=== PATIENT | female | born 1960 | race Caucasian/White ===

== ENCOUNTER → 2016-10-09 | Outpatient (CLI) | payer OTHER ==
--- NOTE | 2016-10-09 14:37 | RAD ---
Exam performed: Right breast ultrasound. History: Follow-up abnormal nodule at 3:00 position. Date of service: 10/09/16. Comparison made to a right breast diagnostic mammogram and ultrasound from 01/23/16, right breast ultrasound from 10/24 and diagnostic right mammogram and ultrasound from 02/02/2015. Discussion: Sonographic evaluation of the right breast is performed in the area of previously seen concern. Normal fibroglandular densities are seen. No solid or cystic mass lesions are seen. Impression: No definite sonographic abnormality seen in the right breast. Patient may return for annual screening mammogram when schedule in January. BI-RADS 1
== END | disposition home or self-care (01) ==
LOC: US 11:17
PROVIDERS: ATTEND Family Medicine
DX: R92.8 Other abnormal and inconclusive findings on diagnostic imaging of breast (principal); N63 Unspecified lump in breast
CPT/HCPCS: 76641

== ENCOUNTER 2021-01-16 11:33 | Emergency (ER) | payer OTHER ==
[~2021-01-16] VITALS: Ht 170.2 cm; Wt 87.8 kg
[2021-01-16] MEDS ORDERED: IV NORMAL SALINE 1000ML BAG 1,000 ML IV ONE ×2 (12:00→14:15)
[2021-01-16] MEDS ORDERED: fentaNYL PF VIAL 100 MCG/2 ML VIAL IVP ONE (12:00)
[2021-01-16] MEDS ORDERED: ONDANSETRON PF 4 MG/2 ML VIAL. IVP ONE ×2 (12:00→14:00)
[2021-01-16 12:06] LABS: BASO # 0.1 x10^3/uL (0.0-0.2); BASO % 1 % (0-3); EOS % 1 % (0-3); HEMATOCRIT 40.1 % (36.0-47.0); HEMOGLOBIN 13.5 g/dL (12.0-15.5); LYMPH # 2.1 x10^3/uL (1.0-4.8); LYMPH % 25 % (24-48); MEAN CORPUSCULAR HEMOGLOBIN 32 pg (25-35); MEAN CORPUSCULAR HGB CONC 34 g/dL (31-37); MEAN CORPUSCULAR VOLUME 94 fL (79-100); MONO # 0.4 x10^3/uL (0.0-1.1); MONO % 5 % (0-9); NEUT # 5.7 x10^3/uL (1.8-7.7); NEUT % 69 % (31-73); PLATELET COUNT 340 x10^3/uL (140-400); RED BLOOD COUNT 4.25 x10^6/uL (3.50-5.40); RED CELL DISTRIBUTION WIDTH 14.2 % (11.5-14.5); WHITE BLOOD COUNT 8.3 x10^3/uL (4.0-11.0)
[2021-01-16 12:28] LABS: ALBUMIN 4.4 g/dL (3.4-5.0); ALBUMIN/GLOBULIN RATIO 1.2 (1.0-1.7); CALCIUM 9.3 mg/dL (8.5-10.1); CREATININE 0.9 mg/dL (0.6-1.0); GFR 63.2; MAGNESIUM 1.9 mg/dL (1.8-2.4); TOTAL BILIRUBIN 0.6 mg/dL (0.2-1.0); TOTAL PROTEIN 8.1 g/dL (6.4-8.2)
--- NOTE | 2021-01-16 12:42 | ED.ADGEN ---
Past Medical History Past Medical History: Hypertension, Unknown, Other Additional Past Medical Histor: ETOH abuse, poor historian. Past Surgical History: Appendectomy, Other Additional Past Surgical Histo: Back surgery, 2 knee surgeries. Smoking Status: Current Every Day Smoker Alcohol Use: Occasionally General Adult EDM: Chief Complaint: NAUSEA/VOMITING/DIARRHEA HPI: HPI: Patient is a 61 year old female coming in for multiple episodes of vomiting and diarrhea since this morning. Emesis is nonbloody or bilious. No blood or tarry stools. Patient states she has been drinking water today. Patient states her pain is in the epigastric area that does not radiate and has not moved. Patient traveled from [place], denies any undercooked food or recent antibiotic use. No known sick contacts. Denies any fever comes occasional cough. Has history of alcohol use. History of appendectomy. Review of Systems: Review of Systems: All other systems within normal limits except for as noted in the HPI Current Medications: Current Medications Medications (Trade) Dose Ordered Sig/Chalo Start Time Stop Time Status Last Admin Dose Admin Fentanyl Citrate (Fentanyl 2ml Vial) 75 mcg 1X ONCE 01/16/21 12:00 01/16/21 12:02 DC 01/16/21 12:06 75 MCG Info (CONTRAST GIVEN -- Rx MONITORING) 1 each PRN DAILY PRN 01/16/21 12:45 01/18/21 12:44 Iohexol (Omnipaque 300 Mg/ml) 75 ml 1X ONCE 01/16/21 12:45 01/16/21 12:46 DC 01/16/21 12:43 75 ML Metoclopramide HCl (Reglan Vial) 10 mg 1X ONCE 01/16/21 13:30 01/16/21 13:31 DC 01/16/21 13:27 10 MG Multi-Ingredient Mouthwash/Gargle (Gi Cocktail) 20 ml 1X ONCE 01/16/21 13:45 01/16/21 13:46 DC 01/16/21 14:26 20 ML Ondansetron HCl (Zofran) 4 mg 1X ONCE 01/16/21 14:00 01/16/21 14:01 DC 01/16/21 14:08 4 MG Potassium Chloride (Klor-Con) 40 meq 1X ONCE 01/16/21 14:15 01/16/21 14:16 DC 01/16/21 15:09 40 MEQ Sodium Chloride 1,000 ml @ 1,000 mls/hr 1X ONCE 01/16/21 14:15 01/16/21 15:14 DC 01/16/21 14:26 1,000 MLS/HR Allergies: Allergies: Allergies Coded Allergies Type Severity Reaction Last Updated Verified No Known Drug Allergies 01/16/21 No Physical Exam: PE: Constitutional: Well developed, well nourished, no acute distress, non-toxic appearance. [] HENT: Normocephalic, atraumatic, bilateral external ears normal, nose normal. [] Eyes: PERRLA, conjunctiva normal, no discharge. [] Neck: No rigidity, supple, no stridor. [] Cardiovascular: Regular rate and rhythm, brisk cap refill [] Lungs & Thorax: Non labored symmetric respirations, no tachypnea or respiratory distress [] Abdomen: Soft, nondistended, epigastric tenderness, no rebound. Skin: Warm, diaphoretic, no erythema, no rash. [] Back: Unremarkable Extremities: No deformities, range of motion grossly intact, no lower extremity edema [] Neurologic: Alert and oriented X 3, no focal deficits noted. [] Psychologic: Affect normal, judgement normal, mood normal. [] Current Patient Data: Labs: Laboratory Tests Test 01/16/21 11:44 01/16/21 13:25 White Blood Count 8.3 x10^3/uL (4.0-11.0) Red Blood Count 4.25 x10^6/uL (3.50-5.40) Hemoglobin 13.5 g/dL (12.0-15.5) Hematocrit 40.1 % (36.0-47.0) Mean Corpuscular Volume 94 fL (79-100) Mean Corpuscular Hemoglobin 32 pg (25-35) Mean Corpuscular Hemoglobin Concent 34 g/dL (31-37) Red Cell Distribution Width 14.2 % (11.5-14.5) Platelet Count 340 x10^3/uL (140-400) Neutrophils (%) (Auto) 69 % (31-73) Lymphocytes (%) (Auto) 25 % (24-48) Monocytes (%) (Auto) 5 % (0-9) Eosinophils (%) (Auto) 1 % (0-3) Basophils (%) (Auto) 1 % (0-3) Neutrophils # (Auto) 5.7 x10^3/uL (1.8-7.7) Lymphocytes # (Auto) 2.1 x10^3/uL (1.0-4.8) Monocytes # (Auto) 0.4 x10^3/uL (0.0-1.1) Eosinophils # (Auto) 0.0 x10^3/uL (0.0-0.7) Basophils # (Auto) 0.1 x10^3/uL (0.0-0.2) Sodium Level 142 mmol/L (136-145) Potassium Level 3.0 mmol/L (3.5-5.1) L Chloride Level 104 mmol/L (98-107) Carbon Dioxide Level 22 mmol/L (21-32) Anion Gap 16 (6-14) H Blood Urea Nitrogen 6 mg/dL (7-20) L Creatinine 0.9 mg/dL (0.6-1.0) Estimated GFR (Cockcroft-Gault) 63.2 BUN/Creatinine Ratio 7 (6-20) Glucose Level 161 mg/dL (70-99) H Lactic Acid Level 2.9 mmol/L (0.4-2.0) H Calcium Level 9.3 mg/dL (8.5-10.1) Phosphorus Level 2.0 mg/dL (2.6-4.7) L Magnesium Level 1.9 mg/dL (1.8-2.4) Total Bilirubin 0.6 mg/dL (0.2-1.0) Aspartate Amino Transferase (AST) 17 U/L (15-37) Alanine Aminotransferase (ALT) 17 U/L (14-59) Alkaline Phosphatase 90 U/L (46-116) Troponin I Quantitative < 0.017 ng/mL (0.000-0.055) ZF-Voa-Q-Type Natriuretic Peptide 244 pg/mL (0-124) H Total Protein 8.1 g/dL (6.4-8.2) Albumin 4.4 g/dL (3.4-5.0) Albumin/Globulin Ratio 1.2 (1.0-1.7) Lipase 133 U/L (73-393) Ethyl Alcohol Level < 10 mg/dL (0-10) Urine Collection Type Unknown Urine Color Yellow Urine Clarity Clear Urine pH 7.0 (<5.0-8.0) Urine Specific Arabi 1.025 (1.000-1.030) Urine Protein Negative mg/dL (NEG-TRACE) Urine Glucose (UA) Negative mg/dL (NEG) Urine Ketones (Stick) >=80 mg/dL (NEG) Urine Blood Negative (NEG) Urine Nitrite Negative (NEG) Urine Bilirubin Negative (NEG) Urine Urobilinogen Dipstick 0.2 mg/dL (0.2 mg/dL) Urine Leukocyte Esterase Negative (NEG) Urine RBC 0 /HPF (0-2) Urine WBC 0 /HPF (0-4) Urine Squamous Epithelial Cells Mod /LPF Urine Bacteria 0 /HPF (0-FEW) Urine Opiates Screen Neg (NEG) Urine Methadone Screen Neg (NEG) Urine Barbiturates Neg (NEG) Urine Phencyclidine Screen Neg (NEG) Urine Amphetamine/Methamphetamine Neg (NEG) Urine Benzodiazepines Screen Neg (NEG) Urine Cocaine Screen Neg (NEG) Urine Cannabinoids Screen Pos (NEG) Urine Ethyl Alcohol Neg (NEG) Laboratory Tests 01/16/21 11:44 Laboratory Tests 01/16/21 11:44 Vital Signs: Vital Signs Date Time Temp Pulse Resp B/P (MAP) Pulse Ox O2 Delivery O2 Flow Rate FiO2 01/16/21 12:06 Room Air 01/16/21 11:38 97.9 61 20 199/97 (131) 100 97.9 EKG: EKG: Sinus rhythm, heart rate 50 beats minute, left axis deviation, no ST elevation depression, no ectopy. Normal intervals. [] Heart Score: C/O Chest Pain: No Risk Factors: Risk Factors: DM, Current or recent (<one month) smoker, HTN, HLP, family history of CAD, obesity. Risk Scores: Score 0 - 3: 2.5% MACE over next 6 weeks - Discharge Home Score 4 - 6: 20.3% MACE over next 6 weeks - Admit for Clinical Observation Score 7 - 10: 72.7% MACE over next 6 weeks - Early Invasive Strategies Radiology/Procedures: Radiology/Procedures: [facility] [address] [place] [address] IMAGING REPORT Signed PATIENT: JERED WILKS ACCOUNT: [id number] : 1960 LOCATION: ER AGE: 61 SEX: F EXAM STATUS: REG ER ORD. PHYSICIAN: BARNEY PAN MD REASON: abd pain, vomiting PROCEDURE: CT ABD PELV W/ IV CONTRST ONLY EXAM: Abdomen and pelvis CT with intravenous contrast. HISTORY: Pain and vomiting. TECHNIQUE: Computed tomographic images of the abdomen and pelvis were obtained following the administration of intravenous contrast. Multiplanar reformatting was performed. *One or more of the following individualized dose reduction techniques were utilized for this examination: 1. Automated exposure control. 2. Adjustment of the mA and/or kV according to patient size. 3. Use of iterative reconstruction technique. COMPARISON: None. FINDINGS: Evaluation of the lower thorax demonstrates no infiltrate or pleural effusion. There is a small hiatal hernia. There is a small cyst within the left hepatic lobe. There is cholelithiasis. The pancreas, spleen and adrenal glands are unremarkable. There is right greater than left renal cortical lobulation likely due to scarring. There is no hydronephrosis. There is no appendicitis. There is no bowel obstruction. There is distal colonic diverticulosis. There is segmental wall thickening involving the sigmoid colon likely due to relative underdistention and a sequela of prior inflammation. There is no convincing surrounding inflammatory stranding to suspect acute colitis or diverticulitis. The bladder is unremarkable. The uterus and adnexal regions are unremarkable. There is a normal caliber aorta. There is no lymphadenopathy. There is no suspicious osseous lesion. There is degenerative change involving the spine, primarily at the lower lumbar levels. There are mild chronic compression fractures at T12 and L3. There is severe left hip osteoarthritis. There is associated flattening of the superior left femoral head. IMPRESSION: 1. Distal colonic diverticulosis. There is segmental wall thickening involving the sigmoid colon likely due to relative under distention of the sequela of prior inflammation. There is no convincing acute colitis or diverticulitis. 2. Cholelithiasis. 3. Bilateral renal cortical scarring. 4. Small hiatal hernia. 5. Small hepatic cyst. Electronically signed by: Delmis Mitchell MD (01/16/2021 12:58 PM) [id number] DICTATED and SIGNED BY: DELMIS MITCHELL MD DATE: 01/16/21 [id number] 0 [] Course & Med Decision Making: Course & Med Decision Making Pertinent Labs and Imaging studies reviewed. (See chart for details) Patient feeling much better and tolerating p.o. [] Linsey Disclaimer: Linsey Disclaimer: This electronic medical record was generated, in whole or in part, using a voice recognition dictation system. Departure Departure Impression: Primary Impression: Nausea vomiting and diarrhea Disposition: HOME / SELF CARE / HOMELESS Condition: IMPROVED Referrals: NO PCP (PCP) Patient Instructions: Diet for Diarrhea, Adult, Hypokalemia Additional Instructions: Take nausea and stomach pain medications as needed. Can take [id number] Imodium for diarrhea if diet is not working. Increase potassium intake in your regular diet. Scripts Ondansetron (ONDANSETRON ODT) 4 Mg Tab.rapdis 1 TAB PO PRN Q6-8HRS PRN for NAUSEA for 5 Days, #16 TAB Prov: BARNEY PAN MD 01/16/21 Sucralfate (SUCRALFATE) 1 Gm Tablet 1 TAB PO TID PRN for ABDOMINAL PAIN for 10 Days, #30 TAB 11 Refills Prov: BARNEY PAN MD 01/16/21 BARNEY PAN MD Jan 16, 2021 12:42
[2021-01-16] MEDS ORDERED: IOHEXOL 300 MG/ML 100ML VIAL. IV ONE (12:45)
[2021-01-16] MEDS ORDERED: CONTRAST GIVEN. MC PRN (12:45)
--- NOTE | 2021-01-16 13:00 | RAD ---
EXAM: Abdomen and pelvis CT with intravenous contrast. HISTORY: Pain and vomiting. TECHNIQUE: Computed tomographic images of the abdomen and pelvis were obtained following the administ ration of intravenous contrast. Multiplanar reformatting was performed. *One or more of the following individualized dose reduction techniques were utilized for this examina tion: 1. Automated exposure control. 2. Adjustment of the mA and/or kV according to patient size. 3. Use of iterative reconstruction technique. COMPARISON: None. FINDINGS: Evaluation of the lower thorax demonstrates no infiltrate or pleural effusion. There is a s mall hiatal hernia. There is a small cyst within the left hepatic lobe. There is cholelithiasis. The pancreas, spleen and adrenal glands are unremarkable. There is right greater than left renal cortical lobulation likely due to scarring. There is no hydron ephrosis. There is no appendicitis. There is no bowel obstruction. There is distal colonic diverticul osis. There is segmental wall thickening involving the sigmoid colon likely due to relative underdist ention and a sequela of prior inflammation. There is no convincing surrounding inflammatory stranding to suspect acute colitis or diverticulitis. The bladder is unremarkable. The uterus and adnexal jhon ons are unremarkable. There is a normal caliber aorta. There is no lymphadenopathy. There is no suspicious osseous lesion. There is degenerative change involving the spine, primarily at the lower lumbar levels. There are mil d chronic compression fractures at T12 and L3. There is severe left hip osteoarthritis. There is asso ciated flattening of the superior left femoral head. IMPRESSION: 1. Distal colonic diverticulosis. There is segmental wall thickening involving the sigmoid colon like ly due to relative under distention of the sequela of prior inflammation. There is no convincing acut e colitis or diverticulitis. 2. Cholelithiasis. 3. Bilateral renal cortical scarring. 4. Small hiatal hernia. 5. Small hepatic cyst. Electronically signed by: Delmis Mitchell MD (01/16/2021 12:58 PM) [id number]
[2021-01-16] MEDS ORDERED: METOCLOPRAMIDE HCL 10 MG/2 ML VIAL. IVP ONE (13:30)
[2021-01-16 13:44] LABS: BILIRUBIN,URINE NEGATIVE (NEG); CLARITY,URINE CLEAR; COLOR,URINE YELLOW; NITRITE,URINE NEGATIVE (NEG); PROTEIN,URINE NEGATIVE (NEG-TRACE); UROBILINOGEN,URINE 0.2 mg/dL (0.2 mg/dL)
[2021-01-16] MEDS ORDERED: LIDO:MAALOX 1:1 20 ML SINGLE DOSE. SWSW ONE (13:45)
[2021-01-16 13:51] LABS: AMPHETAMINE/METHAMPHETAMINE NEG (NEG); BARBITURATES NEG (NEG); BENZODIAZEPINES NEG (NEG); CANNABINOIDS POS (NEG); COCAINE NEG (NEG); METHADONE NEG (NEG); OPIATES NEG (NEG); PHENCYCLIDINE NEG (NEG)
[2021-01-16 14:12] LABS: BACTERIA,URINE 0 /HPF (0-FEW); RBC,URINE 0 /HPF (0-2); WBC,URINE 0 /HPF (0-4)
[2021-01-16] MEDS ORDERED: POTASSIUM CHLORIDE 20 MEQ TABLET.ER. PO ONE (14:15)
[2021-01-16 15:20] VITALS: BP 173/87
[2021-01-16] MEDS ORDERED: ONDA4TAB12 PO (15:25)
[2021-01-16] MEDS ORDERED: SUCR1TAB PO (15:25)
--- NOTE | 2021-01-16 18:09 | EKG ---
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
== END 2021-01-16 15:35 | disposition home or self-care (01) ==
LOC: ER 11:33
DX: R11.2 Nausea with vomiting, unspecified (principal); R19.7 Diarrhea, unspecified; R10.13 Epigastric pain; I10 Essential (primary) hypertension; F17.200 Nicotine dependence, unspecified, uncomplicated; Z90.49 Acquired absence of other specified parts of digestive tract
CPT/HCPCS: 36415; 74177; 80053; 80307; 81001; 83605; 83690; 83735; 83880; 84100; 84484; 85025; 93005; 96361; 96374; 96375; 96376; 99285; G0480; J2405; J2765; J3010; J7030; Q9967

== ENCOUNTER → 2021-05-01 | Outpatient (CLI) | payer OTHER ==
[~2021-05-01] MED LIST: ATROVENT HFA12.9 GM IH; FERR-36 PO; GABA600T7 PO; LEVO112T49 PO; NAPH15DR11 OU; NAPR-514 PO; NORT25CA PO; ONDA4TAB12 PO; SUCR1TAB PO; TRAM50TA PO
[2021-05-01 08:55] LABS: BASO # 0.1 x10^3/uL (0.0-0.2); BASO % 2 % (0-3); EOS # 0.3 x10^3/uL (0.0-0.7); EOS % 4 % (0-3); HEMATOCRIT 38.2 % (36.0-47.0); HEMOGLOBIN 12.9 g/dL (12.0-15.5); LYMPH # 2.1 x10^3/uL (1.0-4.8); LYMPH % 32 % (24-48); MEAN CORPUSCULAR HEMOGLOBIN 32 pg (25-35); MEAN CORPUSCULAR HGB CONC 34 g/dL (31-37); MEAN CORPUSCULAR VOLUME 94 fL (79-100); MONO # 0.5 x10^3/uL (0.0-1.1); MONO % 7 % (0-9); NEUT # 3.7 x10^3/uL (1.8-7.7); NEUT % 55 % (31-73); PLATELET COUNT 260 x10^3/uL (140-400); RED BLOOD COUNT 4.08 x10^6/uL (3.50-5.40); WHITE BLOOD COUNT 6.8 x10^3/uL (4.0-11.0)
[2021-05-01 09:06] LABS: PROTHROMBIN TIME PATIENT 12.2 SEC (11.7-14.0)
[2021-05-01 09:08] LABS: ALBUMIN 3.9 g/dL (3.4-5.0); CALCIUM 8.9 mg/dL (8.5-10.1); CREATININE 0.9 mg/dL (0.6-1.0); GFR 63.2; POTASSIUM 4.4 mmol/L (3.5-5.1)
--- NOTE | 2021-05-01 11:29 | EKG ---
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
[2021-05-02 01:08] LABS: HEMOGLOBIN A1C 5.4 % (4.8-5.6)
--- NOTE | 2021-05-02 14:00 | RAD ---
AP and Lateral Views of the Chest 05/01/2021 11:59 AM Indication: Reason: joint prehab class-hx hypertension- preop evaluation for left hip Comparison: Chest radiograph February 21, 2008 Findings: There is no focal consolidation or infiltrate identified. The cardiomediastinal silhouette is within normal limits. There is no evidence of pneumothorax or pleural effusion. No acute osseous a bnormalities are identified. Impression: No evidence of acute cardiopulmonary process. Electronically signed by: Nick Bauman MD (05/02/2021 8:41 AM) [id number]
== END ==
LOC: SURGPAT 11:44
PROVIDERS: ATTEND Orthopaedic Surgery
DX: Z01.818 Encounter for other preprocedural examination (principal); R94.31 Abnormal electrocardiogram [ECG] [EKG]; M16.12 Unilateral primary osteoarthritis, left hip
CPT/HCPCS: 36415; 71046; 80048; 82040; 82306; 83036; 85025; 85610; 85651; 85730; 87641; 93005

== ENCOUNTER → 2021-06-09 | Outpatient (CLI) | payer OTHER | LOC: SURGPAT 13:18 | PROVIDERS: ATTEND Orthopaedic Surgery | DX: Z01.812 Encounter for preprocedural laboratory examination (principal); M16.12 Unilateral primary osteoarthritis, left hip | CPT/HCPCS: 36415; 80307; 87641 ==

== ENCOUNTER 2021-07-24 17:52 | Inpatient (IN) | payer OTHER ==
[~2021-07-24] VITALS: Ht 167.6 cm; Wt 94.2 kg
[2021-07-24] MEDS ORDERED: IV NORMAL SALINE 1000ML BAG 1,000 ML IV ONE (18:00)
--- NOTE | 2021-07-24 18:11 | PHYS DOC ---
Past Medical History Past Medical History: Hypertension, Unknown, Other Additional Past Medical Histor: ETOH abuse, poor historian. Past Surgical History: Appendectomy, Other Additional Past Surgical Histo: Back surgery, 2 knee surgeries. Smoking Status: Current Every Day Smoker Alcohol Use: Occasionally General Adult HPI: HPI: Patient is a 61-year-old female who presents to the emergency department for seizure-like activity. Per EMS, patient's seizures were witnessed by her sistershe reports 5 seizures today, there reports that patient was able to communicate with sister immediately following seizures and there was no postictal period. EMS reports that patient was hyperventilating when they arri julián. Patient received 5 mg of Versed by EMS. Patient is also reporting nausea, vomiting and diarrhea that started today. Patient does not have a history of seizures. Patient denies shortness of breath, chest pain, fevers, abdominal pain, sick exposures. Patient is alert and oriented x4. Review of Systems: Review of Systems: Constitutional: See HPI Respiratory: See HPI Cardiovascular: See HPI GI: See HPI Neurologic: See HPI Heart Score: C/O Chest Pain: No Risk Factors: Risk Factors: DM, Current or recent (<one month) smoker, HTN, HLP, family history of CAD, obesity. Risk Scores: Score 0 - 3: 2.5% MACE over next 6 weeks - Discharge Home Score 4 - 6: 20.3% MACE over next 6 weeks - Admit for Clinical Observation Score 7 - 10: 72.7% MACE over next 6 weeks - Early Invasive Strategies Current Medications: Current Medications Medications (Trade) Dose Ordered Sig/Chalo Start Time Stop Time Status Last Admin Dose Admin Sodium Chloride 1,000 ml @ 1,000 mls/hr 1X ONCE 07/24/21 18:00 07/24/21 18:59 Allergies: Allergies: Allergies Coded Allergies Type Severity Reaction Last Updated Verified No Known Drug Allergies 01/16/21 No Physical Exam: PE: Constitutional: Well developed, well nourished, no acute distress, non-toxic appearance. [] HENT: Normocephalic, atraumatic, bilateral external ears normal, oropharynx moist, no oral exudates, nose normal. [] Eyes: PERRL, 4 mm pupils bilaterally, EOMI, conjunctiva normal, no discharge. [] Neck: Normal range of motion, no stridor Cardiovascular:Heart rate regular rhythm, no murmur [] Lungs & Thorax: Bilateral breath sounds clear to auscultation [] Abdomen: Bowel sounds normal, soft, no tenderness, no masses, no pulsatile masses. [] Skin: Warm, dry, no erythema, no rash. [] Back: Normal range of motion Extremities: No tenderness, no cyanosis, no clubbing, ROM intact, no edema. [] Neurologic: Alert and oriented X 3, normal motor function, normal sensory function, no focal deficits noted, patient moving all 4 extremities equally, no pronator drift, no speech changes, equal hooker up strength bilaterally. [] Psychologic: Affect normal, judgement normal, mood normal. [] Current Patient Data: Labs: Laboratory Tests Test 07/24/21 18:15 White Blood Count 10.5 x10^3/uL Red Blood Count 4.28 x10^6/uL Hemoglobin 13.6 g/dL Hematocrit 40.9 % Mean Corpuscular Volume 95 fL Mean Corpuscular Hemoglobin 32 pg Mean Corpuscular Hemoglobin Concent 33 g/dL Red Cell Distribution Width 14.6 % Platelet Count 321 x10^3/uL Neutrophils (%) (Auto) 88 % Lymphocytes (%) (Auto) 9 % Monocytes (%) (Auto) 3 % Eosinophils (%) (Auto) 0 % Basophils (%) (Auto) 1 % Neutrophils # (Auto) 9.2 x10^3/uL Lymphocytes # (Auto) 0.9 x10^3/uL Monocytes # (Auto) 0.3 x10^3/uL Eosinophils # (Auto) 0.0 x10^3/uL Basophils # (Auto) 0.1 x10^3/uL Sodium Level 140 mmol/L Potassium Level 3.6 mmol/L Chloride Level 102 mmol/L Carbon Dioxide Level 19 mmol/L Anion Gap 19 Blood Urea Nitrogen 12 mg/dL Creatinine 0.9 mg/dL Estimated GFR (Cockcroft-Gault) 63.2 BUN/Creatinine Ratio 13 Glucose Level 149 mg/dL Lactic Acid Level 5.6 mmol/L Calcium Level 8.4 mg/dL Total Bilirubin 0.3 mg/dL Aspartate Amino Transf (AST/SGOT) 18 U/L Alanine Aminotransferase (ALT/SGPT) 23 U/L Alkaline Phosphatase 89 U/L Creatine Kinase 65 U/L Total Protein 7.4 g/dL Albumin 3.6 g/dL Albumin/Globulin Ratio 0.9 Ethyl Alcohol Level < 10 mg/dL Current Medications Medications (Trade) Dose Ordered Sig/Chalo Route PRN Reason Start Time Stop Time Status Last Admin Dose Admin Sodium Chloride 1,000 ml @ 1,000 mls/hr 1X ONCE IV 07/24/21 18:00 07/24/21 18:59 DC 07/24/21 18:56 Ondansetron HCl (Zofran) 4 mg 1X ONCE IVP 07/24/21 19:15 07/24/21 19:16 DC 07/24/21 19:30 EKG: EKG: EKG performed by ER staff at 1802 shows sinus rhythm with a rate of 73, QTC of 416, no STEMI read by Dr. Kruse at 1905, repeat EKG ordered. Repeat EKG performed at 1928 by ER staff shows sinus rhythm with a rate of 70, pac, left axis deviation, no STEMI Radiology/Procedures: Radiology/Procedures: []REASON: seizure like activity PROCEDURE: CT HEAD WO CONTRAST EXAM: CT Head without IV contrast CLINICAL HISTORY: Reason: seizure like activity / Spl. Instructions: / History: COMPARISON: None. TECHNIQUE: Routine CT of the head without contrast. PQRS compliance statement - One or more of the following individualized dose reduction techniques were utilized for this study: 1. Automated exposure control 2. Adjustment of the mA and/or kV according to patient size 3. Use of iterative reconstruction technique FINDINGS: There is no evidence of hemorrhage, mass or extra-axial fluid collection. Nicholson-white differentiation is maintained with no evidence of edema. There is no mass effect or shift of the intracranial structures. The ventricles, basilar cisterns and cortical sulci are normal in size and configuration for the patients stated age. The cerebellum and brainstem are unremarkable. The calvarium demonstrates no evidence of fracture or focal lesion. There is normal aeration of the visualized paranasal sinuses and mastoid air cells. The visualized portions of the orbits are normal. IMPRESSION: No evidence for acute intracranial process. Electronically signed by: Kiel Garduno MD (07/24/2021 6:35 PM) [facility] DICTATED and SIGNED BY: KIEL GARDUNO MD DATE: 07/24/21 [id number] 0 Course & Med Decision Making: Course & Med Decision Making Pertinent Labs and Imaging studies reviewed. (See chart for details) [] Patient presents to the emergency department for seizure-like activity x5 today. Seizures were witnessed by patient's sister. Sister told EMS that patient was able to communicate immediately after seizure-like activity. EMS witnessed a seizure-like activity and states that patient was having pseudo seizures as she was hyperventilating but alert and oriented following with no postictal period. Patient does not have a history of seizures. Upon ER arrival, seizure precautions initiated, Work-up in the ER consisted of blood work, EKG, CT imaging of head. CT head negative for acute findings. Patient was noted to have an anion gap of 19 and lactic acid of 5.6. Patient given IV fluids in the ER. Awaiting the results of patient's troponin and patient to have repeat lactic acid after fluids. Due to patient's age and history, I think it would be best for her to be admitted for her first time seizures given that she has had 5 today. I discussed these findings with Dr. Redmond who agreed to admit the patient under his services for seizures. I discussed patient's findings with her and her sister as well as treatment plan and they are agreeable at this time. ER bridge orders placed.[id number]. Care transferred. Linsey Disclaimer: Linsey Disclaimer: This electronic medical record was generated, in whole or in part, using a voice recognition dictation system. Departure Departure Impression: Primary Impression: Seizure Disposition: ADMITTED INPATIENT Admitting Physician: JUAN J Condition: STABLE Referrals: DOMINIC RAY (PCP) CARLINE SAMUELS SALES HOST Jul 24, 2021 18:11
[2021-07-24 18:24] LABS: BASO # 0.1 x10^3/uL (0.0-0.2); BASO % 1 % (0-3); EOS % 0 % (0-3); HEMATOCRIT 40.9 % (36.0-47.0); HEMOGLOBIN 13.6 g/dL (12.0-15.5); LYMPH # 0.9 x10^3/uL (1.0-4.8); LYMPH % 9 % (24-48); MEAN CORPUSCULAR HEMOGLOBIN 32 pg (25-35); MEAN CORPUSCULAR HGB CONC 33 g/dL (31-37); MEAN CORPUSCULAR VOLUME 95 fL (79-100); MONO # 0.3 x10^3/uL (0.0-1.1); MONO % 3 % (0-9); NEUT # 9.2 x10^3/uL (1.8-7.7); NEUT % 88 % (31-73); PLATELET COUNT 321 x10^3/uL (140-400); RED BLOOD COUNT 4.28 x10^6/uL (3.50-5.40); RED CELL DISTRIBUTION WIDTH 14.6 % (11.5-14.5); WHITE BLOOD COUNT 10.5 x10^3/uL (4.0-11.0)
--- NOTE | 2021-07-24 18:37 | RAD ---
EXAM: CT Head without IV contrast CLINICAL HISTORY: Reason: seizure like activity / Spl. Instructions: / History: COMPARISON: None. TECHNIQUE: Routine CT of the head without contrast. PQRS compliance statement - One or more of the following individualized dose reduction techniques wer e utilized for this study: 1. Automated exposure control 2. Adjustment of the mA and/or kV according to patient size 3. Use of iterative reconstruction technique FINDINGS: There is no evidence of hemorrhage, mass or extra-axial fluid collection. Nicholson-white differentiation is maintained with no evidence of edema. There is no mass effect or shift of the intracranial structures. The ventricles, basilar cisterns and cortical sulci are normal in size and configuration for the eduarda ents stated age. The cerebellum and brainstem are unremarkable. The calvarium demonstrates no evidence of fracture or focal lesion. There is normal aeration of the visualized paranasal sinuses and mastoid air cells. The visualized portions of the orbits are normal. IMPRESSION: No evidence for acute intracranial process. Electronically signed by: Kiel Davis MD (07/24/2021 6:35 PM) LV
[2021-07-24 18:38] LABS: CALCIUM 8.4 mg/dL (8.5-10.1); CREATININE 0.9 mg/dL (0.6-1.0); GFR 63.2; POTASSIUM 3.6 mmol/L (3.5-5.1)
[2021-07-24 18:52] LABS: ALBUMIN 3.6 g/dL (3.4-5.0); ALBUMIN/GLOBULIN RATIO 0.9 (1.0-1.7); TOTAL BILIRUBIN 0.3 mg/dL (0.2-1.0); TOTAL PROTEIN 7.4 g/dL (6.4-8.2)
[2021-07-24] MEDS ORDERED: ONDANSETRON PF 4 MG/2 ML VIAL. IVP ONE (19:15)
[2021-07-24] MEDS ORDERED: ONDANSETRON PF 4 MG/2 ML VIAL. IVP PRN (21:15)
[2021-07-24 21:30] LABS: CREATININE 0.7 mg/dL (0.6-1.0); GFR 84.5; POTASSIUM 3.2 mmol/L (3.5-5.1)
--- NOTE | 2021-07-24 21:59 | PDOC1 ---
History and Physical Date of Admission Date of Admission DATE: 07/24/21 TIME: 21:56 Source Source: Chart review History of Present Illness History of Present Illness Ms. Edward is a 61-year-old female admit from emergency department for seizure- like activity. Per EMS her family reported 5 seizures today, there reports that patient was able to communicate with sister immediately following seizures and there was no postictal period. EMS reports that patient was hyperventilating when they arrived. Patient received 5 mg of Versed by EMS. Patient is also reporting nausea, vomiting and diarrhea that started today. Patient does not have a history of seizures. Patient denies shortness of breath, chest pain, fevers, abdominal pain, sick exposures. Patient is alert and oriented x4. Past Medical History Cardiovascular: No pertinent hx Psych: Anxiety, Other (neuropathic pain) Past Surgical History Past Surgical History: No pertinent history Family History Family History: No Significant Social History Smoke: No ALCOHOL: none Drugs: None Current Problem List Problem List Problems Medical Problems: (1) Seizure Status: Acute Current Medications Current Medications Current Medications Sodium Chloride 1,000 ml @ 1,000 mls/hr 1X ONCE IV Last administered on 07/24/21at 18:56; Start 07/24/21 at 18:00; Stop 07/24/21 at 18:59; Status DC Ondansetron HCl (Zofran) 4 mg 1X ONCE IVP Last administered on 07/24/21at 19:30; Start 07/24/21 at 19:15; Stop 07/24/21 at 19:16; Status DC Ondansetron HCl (Zofran) 4 mg PRN Q8HRS PRN IVP NAUSEA/VOMITING; Start at 21:15; Stop 07/25/21 at 21:14 Active Scripts Active Ondansetron Odt (Ondansetron) 4 Mg Tab.rapdis 1 Tab PO PRN Q6-8HRS PRN 5 Days Sucralfate 1 Gm Tablet 1 Tab PO TID PRN 10 Days Reported Eye Allergy Relief Drops (Naphazoline Hcl/Pheniramine) 15 Ml Drops 1 Drop OU PRN DAILY PRN Levothyroxine Sodium 112 Mcg Tablet 112 Mcg PO DAILYAC Naproxen 500 Mg Tablet 500 Mg PO BID Nortriptyline Hcl 25 Mg Capsule 25 Mg PO PRN TID PRN Tramadol Hcl 50 Mg Tablet 50 Mg PO Q6HRS PRN Gabapentin 600 Mg Tablet 600 Mg PO TID Iron (Ferrous Sulfate) 325 Mg Tablet 65 Mg PO DAILY Atrovent Hfa (Ipratropium [place]) 12.9 Gm Hfa.aer.ad 2 Puff IH DAILY Allergies Allergies: Coded Allergies: No Known Drug Allergies (Unverified , 07/24/21) ROS General: YES: Chills, Fatigue, Malaise PSYCHOLOGICAL ROS: No: Anxiety, Behavioral Disorder, Concentration difficultie, Decreased libido, Depression, Disorientation, Hallucinations, Hostility, Irritablity, Memory difficulties, Mood Swings, Obsessive thoughts, Physical abuse, Sexual abuse, Sleep disturbances, Suicidal ideation, Other Eyes: No Blurry vision, No Decreased vision, No Double vision, No Dry eyes, No Excessive tearing, No Eye Pain, No Itchy Eyes, No Loss of vision, No Photophobia, No Scotomata, No Uses contacts, No Uses glasses, No Other HEENT: No: Heacaches, Visual Changes, Hearing change, Nasal congestion, Nasal discharge, Oral lesions, Sinus pain, Sore Throat, Epistaxis, Sneezing, Snoring, Tinnitus, Vertigo, Vocal changes, Other Respiratory: No: Cough, Hemoptysis, Orthopnea, Pleuritic Pain, Shortness of breath, SOB with excertion, Sputum Changes, Stridor, Tachypnea, Wheezing, Other Gastrointestinal: Yes Nausea, Yes Abdominal Pain, Yes Diarrhea Genitourinary: No Dysuria, No Frequency, No Incontinence, No Hematuria, No Retention, No Discharge, No Urgency, No Pain, No Flank Pain, No Other, No , No , No , No , No , No , No Musculoskeletal: No Gait Disturbance, No Joint Pain, No Joint Stiffness, No Joint Swelling, No Muscle Pain, No Muscular Weakness, No Pain In:, No Swelling In:, No Other Neurological: No Behavorial Changes, No Bowel/Bladder ControlChng, No Confusion, No Dizziness, No Gait Disturbance, No Headaches, No Impaired Coord/balance, No Memory Loss, No Numbness/Tingling, No Seizures, No Speech Problems, No Tremors, No Visual Changes, No Weakness, No Other Skin: Yes Dry Skin; No Eczema, No Hair Changes, No Lumps, No Mole Changes, No Mottling, No Nail Changes, No Pruritus, No Rash, No Skin Lesion Changes, No Other, No Acne Physical Exam General: Alert, Cooperative, No acute distress HEENT: PERRLA Lungs: Clear to auscultation Heart: RRR Abdomen: Normal bowel sounds, Soft Extremities: No cyanosis, Normal pulses Skin: No significant lesion Neuro: Normal gait, Sensation intact Psych/Mental Status: Mental status NL, Mood NL Vitals Vitals Vital Signs Date Time Temp Pulse Resp B/P (MAP) Pulse Ox O2 Delivery O2 Flow Rate FiO2 07/24/21 18:07 98.5 94 18 134/70 (91) 96 Room Air 98.5 Labs Labs Laboratory Tests Test 07/24/21 18:15 07/24/21 21:08 White Blood Count 10.5 x10^3/uL (4.0-11.0) Red Blood Count 4.28 x10^6/uL (3.50-5.40) Hemoglobin 13.6 g/dL (12.0-15.5) Hematocrit 40.9 % (36.0-47.0) Mean Corpuscular Volume 95 fL (79-100) Mean Corpuscular Hemoglobin 32 pg (25-35) Mean Corpuscular Hemoglobin Concent 33 g/dL (31-37) Red Cell Distribution Width 14.6 % (11.5-14.5) Platelet Count 321 x10^3/uL (140-400) Neutrophils (%) (Auto) 88 % (31-73) Lymphocytes (%) (Auto) 9 % (24-48) Monocytes (%) (Auto) 3 % (0-9) Eosinophils (%) (Auto) 0 % (0-3) Basophils (%) (Auto) 1 % (0-3) Neutrophils # (Auto) 9.2 x10^3/uL (1.8-7.7) Lymphocytes # (Auto) 0.9 x10^3/uL (1.0-4.8) Monocytes # (Auto) 0.3 x10^3/uL (0.0-1.1) Eosinophils # (Auto) 0.0 x10^3/uL (0.0-0.7) Basophils # (Auto) 0.1 x10^3/uL (0.0-0.2) Sodium Level 140 mmol/L (136-145) 139 mmol/L (136-145) Potassium Level 3.6 mmol/L (3.5-5.1) 3.2 mmol/L (3.5-5.1) Chloride Level 102 mmol/L (98-107) 103 mmol/L (98-107) Carbon Dioxide Level 19 mmol/L (21-32) 24 mmol/L (21-32) Anion Gap 19 (6-14) 12 (6-14) Blood Urea Nitrogen 12 mg/dL (7-20) 10 mg/dL (7-20) Creatinine 0.9 mg/dL (0.6-1.0) 0.7 mg/dL (0.6-1.0) Estimated GFR (Cockcroft-Gault) 63.2 84.5 BUN/Creatinine Ratio 13 (6-20) Glucose Level 149 mg/dL (70-99) 122 mg/dL (70-99) Lactic Acid Level 5.6 mmol/L (0.4-2.0) 1.5 mmol/L (0.4-2.0) Calcium Level 8.4 mg/dL (8.5-10.1) 8.0 mg/dL (8.5-10.1) Total Bilirubin 0.3 mg/dL (0.2-1.0) Aspartate Amino Transf (AST/SGOT) 18 U/L (15-37) Alanine Aminotransferase (ALT/SGPT) 23 U/L (14-59) Alkaline Phosphatase 89 U/L (46-116) Creatine Kinase 65 U/L (26-192) Total Protein 7.4 g/dL (6.4-8.2) Albumin 3.6 g/dL (3.4-5.0) Albumin/Globulin Ratio 0.9 (1.0-1.7) Ethyl Alcohol Level < 10 mg/dL (0-10) Troponin I High Sensitivity 28 ng/L (4-50) Laboratory Tests Test 07/24/21 18:15 07/24/21 21:08 White Blood Count 10.5 x10^3/uL (4.0-11.0) Red Blood Count 4.28 x10^6/uL (3.50-5.40) Hemoglobin 13.6 g/dL (12.0-15.5) Hematocrit 40.9 % (36.0-47.0) Mean Corpuscular Volume 95 fL (79-100) Mean Corpuscular Hemoglobin 32 pg (25-35) Mean Corpuscular Hemoglobin Concent 33 g/dL (31-37) Red Cell Distribution Width 14.6 % (11.5-14.5) Platelet Count 321 x10^3/uL (140-400) Neutrophils (%) (Auto) 88 % (31-73) Lymphocytes (%) (Auto) 9 % (24-48) Monocytes (%) (Auto) 3 % (0-9) Eosinophils (%) (Auto) 0 % (0-3) Basophils (%) (Auto) 1 % (0-3) Neutrophils # (Auto) 9.2 x10^3/uL (1.8-7.7) Lymphocytes # (Auto) 0.9 x10^3/uL (1.0-4.8) Monocytes # (Auto) 0.3 x10^3/uL (0.0-1.1) Eosinophils # (Auto) 0.0 x10^3/uL (0.0-0.7) Basophils # (Auto) 0.1 x10^3/uL (0.0-0.2) Sodium Level 140 mmol/L (136-145) 139 mmol/L (136-145) Potassium Level 3.6 mmol/L (3.5-5.1) 3.2 mmol/L (3.5-5.1) Chloride Level 102 mmol/L (98-107) 103 mmol/L (98-107) Carbon Dioxide Level 19 mmol/L (21-32) 24 mmol/L (21-32) Anion Gap 19 (6-14) 12 (6-14) Blood Urea Nitrogen 12 mg/dL (7-20) 10 mg/dL (7-20) Creatinine 0.9 mg/dL (0.6-1.0) 0.7 mg/dL (0.6-1.0) Estimated GFR (Cockcroft-Gault) 63.2 84.5 BUN/Creatinine Ratio 13 (6-20) Glucose Level 149 mg/dL (70-99) 122 mg/dL (70-99) Lactic Acid Level 5.6 mmol/L (0.4-2.0) 1.5 mmol/L (0.4-2.0) Calcium Level 8.4 mg/dL (8.5-10.1) 8.0 mg/dL (8.5-10.1) Total Bilirubin 0.3 mg/dL (0.2-1.0) Aspartate Amino Transf (AST/SGOT) 18 U/L (15-37) Alanine Aminotransferase (ALT/SGPT) 23 U/L (14-59) Alkaline Phosphatase 89 U/L (46-116) Creatine Kinase 65 U/L (26-192) Total Protein 7.4 g/dL (6.4-8.2) Albumin 3.6 g/dL (3.4-5.0) Albumin/Globulin Ratio 0.9 (1.0-1.7) Ethyl Alcohol Level < 10 mg/dL (0-10) Troponin I High Sensitivity 28 ng/L (4-50) VTE Prophylaxis Ordered VTE Prophylaxis Devices: No VTE Pharmacological Prophylaxi: Yes Assessment/Plan Assessment/Plan seizure disorder repeated seizure, consult neuro depression, anxiety, neuropathic pain obese, BMI 31 diarrhea, seems improved dehydration, hypokalemia, replace, and iv fluid Justifications for Admission Other Justification ROULA BECKER MD Jul 24, 2021 21:59
[2021-07-24] MEDS ORDERED: SUCRALFATE 1 GM TABLET. PO PRN (22:00)
[2021-07-24] MEDS ORDERED: POTASSIUM CHLORIDE 20 MEQ TABLET.ER. PO ONE (22:15)
[2021-07-24 23:00] VITALS: BP 139/84
[2021-07-24] MEDS: NORTRIPTYLINE 25 MG CAPSULE PO SCH (23:48)
[2021-07-24] MEDS: GABAPENTIN 300 MG CAPSULE. PO SCH (23:48)
[2021-07-25 03:00] VITALS: BP 131/76
--- NOTE | 2021-07-25 03:02 | EKG ---
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
[2021-07-25 07:00] VITALS: BP 128/83
--- NOTE | 2021-07-25 07:19 | NUR ---
Consult to Dr Nobles's answering service, Cheo, to let the physician know.
[2021-07-25 08:47] LABS: BASO % 0 % (0-3); EOS # 0.1 x10^3/uL (0.0-0.7); EOS % 1 % (0-3); HEMATOCRIT 40.4 % (36.0-47.0); HEMOGLOBIN 13.5 g/dL (12.0-15.5); LYMPH # 3.1 x10^3/uL (1.0-4.8); LYMPH % 29 % (24-48); MEAN CORPUSCULAR HEMOGLOBIN 32 pg (25-35); MEAN CORPUSCULAR HGB CONC 34 g/dL (31-37); MEAN CORPUSCULAR VOLUME 94 fL (79-100); MONO # 0.8 x10^3/uL (0.0-1.1); MONO % 8 % (0-9); NEUT # 6.7 x10^3/uL (1.8-7.7); NEUT % 63 % (31-73); PLATELET COUNT 319 x10^3/uL (140-400); RED BLOOD COUNT 4.28 x10^6/uL (3.50-5.40); RED CELL DISTRIBUTION WIDTH 14.1 % (11.5-14.5); WHITE BLOOD COUNT 10.7 x10^3/uL (4.0-11.0)
[2021-07-25] MEDS: IPRATRPIUM/ALBUTEROL 0.5/2.5MG 3 ML NEBU. NEB SCH ×4 (08:57→20:51)
[2021-07-25 09:00] LABS: ALBUMIN 3.7 g/dL (3.4-5.0); ALBUMIN/GLOBULIN RATIO 0.9 (1.0-1.7); CALCIUM 8.6 mg/dL (8.5-10.1); CREATININE 0.8 mg/dL (0.6-1.0); GFR 72.4; POTASSIUM 3.5 mmol/L (3.5-5.1); TOTAL BILIRUBIN 0.5 mg/dL (0.2-1.0); TOTAL PROTEIN 7.6 g/dL (6.4-8.2)
--- NOTE | 2021-07-25 10:20 | PDOC2 ---
NEUROLOGY CONSULT Date of Service DOS: DATE: 07/25/21 TIME: 10:13 Reason for Consult Reason for Consult: Seizure Referring Physician Referring Physician: Dr. Redmond PCP: Dr. Velasco Source Source: Chart review, Patient History of Present Illness History of Present Illness The patient is a 61-year-old right-handed female who had nausea, vomiting, and diarrhea yesterday morning. She felt weak all over. She had 5 seizures at home, patient denies loss of consciousness, she says that she trembled all over. There was no tongue biting or incontinence. She feels much better this morning, but does have a headache. There is no prior history of stroke, seizure, or head injury. Past Medical History Cardiovascular: HTN GI: GERD Psych: Anxiety, Depression Musculoskeletal: Osteoarthritis, Other (Fractures) Renal/: UTI (With sepsis) Endocrine: Hypothyroidism Past Surgical History Past Surgical History: Appendectomy, Cholecystectomy, Tubal Ligation, Other (Lumbar, left elbow, right patella) Family History Family History: Other (Positive for seizures, sister has) Social History Social History , visiting here from [place] to help with sister whose just passed, occasional alcohol, occasional tobacco Current Medications Current Medications Current Medications Sodium Chloride 1,000 ml @ 1,000 mls/hr 1X ONCE IV Last administered on 07/24/21at 18:56; Start 07/24/21 at 18:00; Stop 07/24/21 at 18:59; Status DC Ondansetron HCl (Zofran) 4 mg 1X ONCE IVP Last administered on 07/24/21at 19:30; Start 07/24/21 at 19:15; Stop 07/24/21 at 19:16; Status DC Ondansetron HCl (Zofran) 4 mg PRN Q8HRS PRN IVP NAUSEA/VOMITING; Start 07/24/21 at 21:15; Stop 07/25/21 at 21:14 Levothyroxine Sodium (Synthroid) 112 mcg DAILYAC PO ; Start 07/25/21 at 07:30 Nortriptyline HCl (Pamelor) 25 mg TID PO Last administered on 07/24/21at 23:48; Start 07/24/21 at 22:30 Sucralfate (Carafate) 1 gm PRN TID PRN PO ABDOMINAL PAIN; Start 07/24/21 at 22:00 Gabapentin (Neurontin) 600 mg TID PO Last administered on 07/24/21at 23:48; Start 07/24/21 at 22:30 Albuterol/ Ipratropium (Duoneb) 3 ml RTQID NEB Last administered on 07/25/21at 08:57; Start 07/25/21 at 08:00 Potassium Chloride (Klor-Con) 40 meq 1X ONCE PO Last administered on 07/24/21at 23:49; Start 07/24/21 at 22:15; Stop 07/24/21 at 22:16; Status DC Potassium Chloride (Klor-Con) 20 meq DAILYWBKFT PO ; Start 07/25/21 at 08:00 Active Scripts Active Ondansetron Odt (Ondansetron) 4 Mg Tab.rapdis 1 Tab PO PRN Q6-8HRS PRN 5 Days Sucralfate 1 Gm Tablet 1 Tab PO TID PRN 10 Days Reported Eye Allergy Relief Drops (Naphazoline Hcl/Pheniramine) 15 Ml Drops 1 Drop OU PRN DAILY PRN Levothyroxine Sodium 112 Mcg Tablet 112 Mcg PO DAILYAC Naproxen 500 Mg Tablet 500 Mg PO BID Nortriptyline Hcl 25 Mg Capsule 25 Mg PO PRN TID PRN Tramadol Hcl 50 Mg Tablet 50 Mg PO Q6HRS PRN Gabapentin 600 Mg Tablet 600 Mg PO TID Iron (Ferrous Sulfate) 325 Mg Tablet 65 Mg PO DAILY Atrovent Hfa (Ipratropium [place]) 12.9 Gm Hfa.aer.ad 2 Puff IH DAILY Allergies Allergies: Coded Allergies: No Known Drug Allergies (Unverified , 07/24/21) ROS Review of System Negative for fever, chills, weight loss, shortness of breath, chest pain, indigestion, hematochezia, melena, and dysuria. Full 14-point review of systems is negative. Physical Exam Physical Examination General: Well-developed, well-nourished, white female, in no acute distress HEENT: Normocephalic andatraumatic.Temporal arteriespulsatile and nontender. Neck: Supple without bruit, no meningismus Musculoskeletal: Stability:see neurologic. Gait exam:see neurologic. Tone:see neurologic.Strength:see neurologic. Neurological: Mental Status:intact, orientation, memory, attention span/concentration, language, fund of knowledge normal. Cranial Nerves:Pupils equal and reactive to light, extraocular movements areintact, visual esparza are full to confrontation. Facial sensation is normal. There is no facial asymmetry. Vestibulo-ocular reflex is intact. Palate elevates and tongue protrudes in midline. All other cranial related problems are negative except as mentioned before.Reflexes:2+ and symmetric with flexor plantar responses. Motor:5/5 strength with normal tone and bulk. Coordination:Finger-nose finger and [id number] testing are normal. Rapid alternating movements and fine finger movements are intact. Gait:Arthritic. Sensory:Normal pinprick, vibration, light touch, proprioception. Vitals VITALS Vital Signs Date Time Temp Pulse Resp B/P (MAP) Pulse Ox O2 Delivery O2 Flow Rate FiO2 07/25/21 08:57 96 Room Air 07/25/21 07:00 98.6 83 18 128/83 (98) 98.6 Labs Labs Laboratory Tests Test 07/24/21 18:15 07/24/21 21:08 07/25/21 08:00 White Blood Count 10.5 x10^3/uL (4.0-11.0) 10.7 x10^3/uL (4.0-11.0) Red Blood Count 4.28 x10^6/uL (3.50-5.40) 4.28 x10^6/uL (3.50-5.40) Hemoglobin 13.6 g/dL (12.0-15.5) 13.5 g/dL (12.0-15.5) Hematocrit 40.9 % (36.0-47.0) 40.4 % (36.0-47.0) Mean Corpuscular Volume 95 fL (79-100) 94 fL (79-100) Mean Corpuscular Hemoglobin 32 pg (25-35) 32 pg (25-35) Mean Corpuscular Hemoglobin Concent 33 g/dL (31-37) 34 g/dL (31-37) Red Cell Distribution Width 14.6 % (11.5-14.5) 14.1 % (11.5-14.5) Platelet Count 321 x10^3/uL (140-400) 319 x10^3/uL (140-400) Neutrophils (%) (Auto) 88 % (31-73) 63 % (31-73) Lymphocytes (%) (Auto) 9 % (24-48) 29 % (24-48) Monocytes (%) (Auto) 3 % (0-9) 8 % (0-9) Eosinophils (%) (Auto) 0 % (0-3) 1 % (0-3) Basophils (%) (Auto) 1 % (0-3) 0 % (0-3) Neutrophils # (Auto) 9.2 x10^3/uL (1.8-7.7) 6.7 x10^3/uL (1.8-7.7) Lymphocytes # (Auto) 0.9 x10^3/uL (1.0-4.8) 3.1 x10^3/uL (1.0-4.8) Monocytes # (Auto) 0.3 x10^3/uL (0.0-1.1) 0.8 x10^3/uL (0.0-1.1) Eosinophils # (Auto) 0.0 x10^3/uL (0.0-0.7) 0.1 x10^3/uL (0.0-0.7) Basophils # (Auto) 0.1 x10^3/uL (0.0-0.2) 0.0 x10^3/uL (0.0-0.2) Sodium Level 140 mmol/L (136-145) 139 mmol/L (136-145) 142 mmol/L (136-145) Potassium Level 3.6 mmol/L (3.5-5.1) 3.2 mmol/L (3.5-5.1) 3.5 mmol/L (3.5-5.1) Chloride Level 102 mmol/L (98-107) 103 mmol/L (98-107) 106 mmol/L (98-107) Carbon Dioxide Level 19 mmol/L (21-32) 24 mmol/L (21-32) 25 mmol/L (21-32) Anion Gap 19 (6-14) 12 (6-14) 11 (6-14) Blood Urea Nitrogen 12 mg/dL (7-20) 10 mg/dL (7-20) 10 mg/dL (7-20) Creatinine 0.9 mg/dL (0.6-1.0) 0.7 mg/dL (0.6-1.0) 0.8 mg/dL (0.6-1.0) Estimated GFR (Cockcroft-Gault) 63.2 84.5 72.4 BUN/Creatinine Ratio 13 (6-20) 13 (6-20) Glucose Level 149 mg/dL (70-99) 122 mg/dL (70-99) 91 mg/dL (70-99) Lactic Acid Level 5.6 mmol/L (0.4-2.0) 1.5 mmol/L (0.4-2.0) Calcium Level 8.4 mg/dL (8.5-10.1) 8.0 mg/dL (8.5-10.1) 8.6 mg/dL (8.5-10.1) Total Bilirubin 0.3 mg/dL (0.2-1.0) 0.5 mg/dL (0.2-1.0) Aspartate Amino Transf (AST/SGOT) 18 U/L (15-37) 18 U/L (15-37) Alanine Aminotransferase (ALT/SGPT) 23 U/L (14-59) 23 U/L (14-59) Alkaline Phosphatase 89 U/L (46-116) 83 U/L (46-116) Creatine Kinase 65 U/L (26-192) Total Protein 7.4 g/dL (6.4-8.2) 7.6 g/dL (6.4-8.2) Albumin 3.6 g/dL (3.4-5.0) 3.7 g/dL (3.4-5.0) Albumin/Globulin Ratio 0.9 (1.0-1.7) 0.9 (1.0-1.7) Ethyl Alcohol Level < 10 mg/dL (0-10) Troponin I High Sensitivity 28 ng/L (4-50) Magnesium Level 2.0 mg/dL (1.8-2.4) Laboratory Tests Test 07/24/21 18:15 07/24/21 21:08 07/25/21 08:00 White Blood Count 10.5 x10^3/uL (4.0-11.0) 10.7 x10^3/uL (4.0-11.0) Red Blood Count 4.28 x10^6/uL (3.50-5.40) 4.28 x10^6/uL (3.50-5.40) Hemoglobin 13.6 g/dL (12.0-15.5) 13.5 g/dL (12.0-15.5) Hematocrit 40.9 % (36.0-47.0) 40.4 % (36.0-47.0) Mean Corpuscular Volume 95 fL (79-100) 94 fL (79-100) Mean Corpuscular Hemoglobin 32 pg (25-35) 32 pg (25-35) Mean Corpuscular Hemoglobin Concent 33 g/dL (31-37) 34 g/dL (31-37) Red Cell Distribution Width 14.6 % (11.5-14.5) 14.1 % (11.5-14.5) Platelet Count 321 x10^3/uL (140-400) 319 x10^3/uL (140-400) Neutrophils (%) (Auto) 88 % (31-73) 63 % (31-73) Lymphocytes (%) (Auto) 9 % (24-48) 29 % (24-48) Monocytes (%) (Auto) 3 % (0-9) 8 % (0-9) Eosinophils (%) (Auto) 0 % (0-3) 1 % (0-3) Basophils (%) (Auto) 1 % (0-3) 0 % (0-3) Neutrophils # (Auto) 9.2 x10^3/uL (1.8-7.7) 6.7 x10^3/uL (1.8-7.7) Lymphocytes # (Auto) 0.9 x10^3/uL (1.0-4.8) 3.1 x10^3/uL (1.0-4.8) Monocytes # (Auto) 0.3 x10^3/uL (0.0-1.1) 0.8 x10^3/uL (0.0-1.1) Eosinophils # (Auto) 0.0 x10^3/uL (0.0-0.7) 0.1 x10^3/uL (0.0-0.7) Basophils # (Auto) 0.1 x10^3/uL (0.0-0.2) 0.0 x10^3/uL (0.0-0.2) Sodium Level 140 mmol/L (136-145) 139 mmol/L (136-145) 142 mmol/L (136-145) Potassium Level 3.6 mmol/L (3.5-5.1) 3.2 mmol/L (3.5-5.1) 3.5 mmol/L (3.5-5.1) Chloride Level 102 mmol/L (98-107) 103 mmol/L (98-107) 106 mmol/L (98-107) Carbon Dioxide Level 19 mmol/L (21-32) 24 mmol/L (21-32) 25 mmol/L (21-32) Anion Gap 19 (6-14) 12 (6-14) 11 (6-14) Blood Urea Nitrogen 12 mg/dL (7-20) 10 mg/dL (7-20) 10 mg/dL (7-20) Creatinine 0.9 mg/dL (0.6-1.0) 0.7 mg/dL (0.6-1.0) 0.8 mg/dL (0.6-1.0) Estimated GFR (Cockcroft-Gault) 63.2 84.5 72.4 BUN/Creatinine Ratio 13 (6-20) 13 (6-20) Glucose Level 149 mg/dL (70-99) 122 mg/dL (70-99) 91 mg/dL (70-99) Lactic Acid Level 5.6 mmol/L (0.4-2.0) 1.5 mmol/L (0.4-2.0) Calcium Level 8.4 mg/dL (8.5-10.1) 8.0 mg/dL (8.5-10.1) 8.6 mg/dL (8.5-10.1) Total Bilirubin 0.3 mg/dL (0.2-1.0) 0.5 mg/dL (0.2-1.0) Aspartate Amino Transf (AST/SGOT) 18 U/L (15-37) 18 U/L (15-37) Alanine Aminotransferase (ALT/SGPT) 23 U/L (14-59) 23 U/L (14-59) Alkaline Phosphatase 89 U/L (46-116) 83 U/L (46-116) Creatine Kinase 65 U/L (26-192) Total Protein 7.4 g/dL (6.4-8.2) 7.6 g/dL (6.4-8.2) Albumin 3.6 g/dL (3.4-5.0) 3.7 g/dL (3.4-5.0) Albumin/Globulin Ratio 0.9 (1.0-1.7) 0.9 (1.0-1.7) Ethyl Alcohol Level < 10 mg/dL (0-10) Troponin I High Sensitivity 28 ng/L (4-50) Magnesium Level 2.0 mg/dL (1.8-2.4) Images Images CT Head without IV contrast, 07/24/2021 6:35 PM FINDINGS: There is no evidence of hemorrhage, mass or extra-axial fluid collection. Nicholson-white differentiation is maintained with no evidence of edema. There is no mass effect or shift of the intracranial structures. The ventricles, basilar cisterns and cortical sulci are normal in size and configuration for the patients stated age. The cerebellum and brainstem are unremarkable. The calvarium demonstrates no evidence of fracture or focal lesion. There is normal aeration of the visualized paranasal sinuses and mastoid air c ells. The visualized portions of the orbits are normal. IMPRESSION: No evidence for acute intracranial process. Assessment/Plan Assessment/Plan Impression: It sounds like she had myoclonus her tremulousness rather than true seizures in the setting of hypokalemia following vomiting and diarrhea. She is feeling better today. She does have a headache. Recommendations: Brain MRI Electroencephalogram Hold on anticonvulsants Check magnesium level Home later today if electrolytes are normal and she is feeling up to it I will make a final decision about driving once I receive the MRI and EEG results. Thank you for letting me help with the patient's care. MABEL HAWKINS MD Jul 25, 2021 10:20
[2021-07-25] MEDS: NAPROXEN 500 MG TABLET PO SCH ×2 (11:16→21:13)
[2021-07-25] MEDS: NORTRIPTYLINE 25 MG CAPSULE PO SCH ×3 (11:17→21:13)
[2021-07-25] MEDS: POTASSIUM CHLORIDE 20 MEQ TABLET.ER. PO SCH (11:17)
[2021-07-25] MEDS: GABAPENTIN 300 MG CAPSULE. PO SCH ×3 (11:17→21:13)
[2021-07-25] MEDS: LEVOTHYROXINE 112 MCG TABLET PO SCH (11:17)
[2021-07-25 11:30] VITALS: BP 148/87
--- NOTE | 2021-07-25 12:53 | PDOC ---
[facility] [facility] PROGRESS NOTE Date of Service DOS: DATE: 07/25/21 TIME: 12:52 Chief Complaint Chief Complaint New onset seizures x5 depression, anxiety, neuropathic pain obese, BMI 31 diarrhea, seems improved dehydration, hypokalemia, History of Present Illness History of Present Illness 07/25/2021 Patient seen and examined in MRI room She just had an EEG a few minutes ago as well Discussed with RN Chart reviewed Vitals/I&O Vitals/I&O: Vital Signs Date Time Temp Pulse Resp B/P (MAP) Pulse Ox O2 Delivery O2 Flow Rate FiO2 07/25/21 12:12 97 Room Air 07/25/21 11:30 98.0 82 18 148/87 (107) 98.0 I & O 07/24/21 07/24/21 07/25/21 15:00 23:00 07:00 Intake Total 60 ml Balance 60 ml Physical Exam General: Alert, Cooperative, No acute distress Abdomen: Normal bowel sounds, Soft Extremities: No cyanosis, Normal pulses Skin: No significant lesion Labs Labs: Laboratory Tests Test 07/24/21 18:15 07/24/21 21:08 07/25/21 08:00 White Blood Count 10.5 x10^3/uL (4.0-11.0) 10.7 x10^3/uL (4.0-11.0) Red Blood Count 4.28 x10^6/uL (3.50-5.40) 4.28 x10^6/uL (3.50-5.40) Hemoglobin 13.6 g/dL (12.0-15.5) 13.5 g/dL (12.0-15.5) Hematocrit 40.9 % (36.0-47.0) 40.4 % (36.0-47.0) Mean Corpuscular Volume 95 fL (79-100) 94 fL (79-100) Mean Corpuscular Hemoglobin 32 pg (25-35) 32 pg (25-35) Mean Corpuscular Hemoglobin Concent 33 g/dL (31-37) 34 g/dL (31-37) Red Cell Distribution Width 14.6 % (11.5-14.5) 14.1 % (11.5-14.5) Platelet Count 321 x10^3/uL (140-400) 319 x10^3/uL (140-400) Neutrophils (%) (Auto) 88 % (31-73) 63 % (31-73) Lymphocytes (%) (Auto) 9 % (24-48) 29 % (24-48) Monocytes (%) (Auto) 3 % (0-9) 8 % (0-9) Eosinophils (%) (Auto) 0 % (0-3) 1 % (0-3) Basophils (%) (Auto) 1 % (0-3) 0 % (0-3) Neutrophils # (Auto) 9.2 x10^3/uL (1.8-7.7) 6.7 x10^3/uL (1.8-7.7) Lymphocytes # (Auto) 0.9 x10^3/uL (1.0-4.8) 3.1 x10^3/uL (1.0-4.8) Monocytes # (Auto) 0.3 x10^3/uL (0.0-1.1) 0.8 x10^3/uL (0.0-1.1) Eosinophils # (Auto) 0.0 x10^3/uL (0.0-0.7) 0.1 x10^3/uL (0.0-0.7) Basophils # (Auto) 0.1 x10^3/uL (0.0-0.2) 0.0 x10^3/uL (0.0-0.2) Sodium Level 140 mmol/L (136-145) 139 mmol/L (136-145) 142 mmol/L (136-145) Potassium Level 3.6 mmol/L (3.5-5.1) 3.2 mmol/L (3.5-5.1) 3.5 mmol/L (3.5-5.1) Chloride Level 102 mmol/L (98-107) 103 mmol/L (98-107) 106 mmol/L (98-107) Carbon Dioxide Level 19 mmol/L (21-32) 24 mmol/L (21-32) 25 mmol/L (21-32) Anion Gap 19 (6-14) 12 (6-14) 11 (6-14) Blood Urea Nitrogen 12 mg/dL (7-20) 10 mg/dL (7-20) 10 mg/dL (7-20) Creatinine 0.9 mg/dL (0.6-1.0) 0.7 mg/dL (0.6-1.0) 0.8 mg/dL (0.6-1.0) Estimated GFR (Cockcroft-Gault) 63.2 84.5 72.4 BUN/Creatinine Ratio 13 (6-20) 13 (6-20) Glucose Level 149 mg/dL (70-99) 122 mg/dL (70-99) 91 mg/dL (70-99) Lactic Acid Level 5.6 mmol/L (0.4-2.0) 1.5 mmol/L (0.4-2.0) Calcium Level 8.4 mg/dL (8.5-10.1) 8.0 mg/dL (8.5-10.1) 8.6 mg/dL (8.5-10.1) Total Bilirubin 0.3 mg/dL (0.2-1.0) 0.5 mg/dL (0.2-1.0) Aspartate Amino Transf (AST/SGOT) 18 U/L (15-37) 18 U/L (15-37) Alanine Aminotransferase (ALT/SGPT) 23 U/L (14-59) 23 U/L (14-59) Alkaline Phosphatase 89 U/L (46-116) 83 U/L (46-116) Creatine Kinase 65 U/L (26-192) Total Protein 7.4 g/dL (6.4-8.2) 7.6 g/dL (6.4-8.2) Albumin 3.6 g/dL (3.4-5.0) 3.7 g/dL (3.4-5.0) Albumin/Globulin Ratio 0.9 (1.0-1.7) 0.9 (1.0-1.7) Ethyl Alcohol Level < 10 mg/dL (0-10) Troponin I High Sensitivity 28 ng/L (4-50) Magnesium Level 2.0 mg/dL (1.8-2.4) Assessment and Plan Assessmemt and Plan Problems Medical Problems: (1) Seizure Status: Acute New onset seizures x5 depression, anxiety, neuropathic pain obese, BMI 31 diarrhea, seems improved dehydration, hypokalemia, Plan Await EEG result Await MRI report Seizure precautions Keppra if neurology agrees Appreciate neurology input Home meds DVT prophylaxis Full code Comment Review of Relevant I have reviewed the following items mary jane (where applicable) has been applied. Medications: Current Medications Medications (Trade) Dose Ordered Sig/Chalo Route PRN Reason Start Time Stop Time Status Last Admin Dose Admin Sodium Chloride 1,000 ml @ 1,000 mls/hr 1X ONCE IV 07/24/21 18:00 07/24/21 18:59 DC 07/24/21 18:56 Ondansetron HCl (Zofran) 4 mg 1X ONCE IVP 07/24/21 19:15 07/24/21 19:16 DC 07/24/21 19:30 Levothyroxine Sodium (Synthroid) 112 mcg DAILYAC PO 07/25/21 07:30 07/25/21 11:17 Nortriptyline HCl (Pamelor) 25 mg TID PO 07/24/21 22:30 07/25/21 11:17 Gabapentin (Neurontin) 600 mg TID PO 07/24/21 22:30 07/25/21 11:17 Albuterol/ Ipratropium (Duoneb) 3 ml RTQID NEB 07/25/21 08:00 07/25/21 12:12 Potassium Chloride (Klor-Con) 40 meq 1X ONCE PO 07/24/21 22:15 07/24/21 22:16 DC 07/24/21 23:49 Potassium Chloride (Klor-Con) 20 meq DAILYWBKFT PO 07/25/21 08:00 07/25/21 11:17 Naproxen (Naprosyn) 500 mg BID PO 07/25/21 12:00 07/25/21 11:16 Justifications for Admission Other Justification TOM LAU III DO Jul 25, 2021 12:53
--- NOTE | 2021-07-25 14:00 | RAD ---
MRI BRAIN WO History:Reason: seizures / Spl. Instructions: / History: Technique: Multiplanar, multi sequential MR imaging was performed of the brain without contrast. Comparison: CT July 24, 2021 Findings: Ill-defined FLAIR hyperintensity within the bilateral cerebellar white matter. Additional FLAIR hyper intense signal within the subcortical region within the posterior bilateral parietal lobes, left grea ter than right. (image 22 and 21 flair sequence). No acute infarct. No intracranial hemorrhage. No ma ss effect. No hydrocephalus. Additional mild foci of FLAIR hyperintensities within the hemispheric white matter, most often due to chronic microvascular ischemia. Tiny lacunar infarct within the right cerebellum. Symmetric appearance of the bilateral hippocampal formations. No abnormal signal abnormality. Imaged orbits are unremarkable. Imaged paranasal sinuses and mastoid air cells are clear. Impression: 1. Asymmetric FLAIR hyperintense signal within the subcortical cerebellum and posterior parietal lob es, left greater than right. Findings can be seen with posterior reversible encephalopathy syndrome a nd less likely encephalitis. Recommend further clinical evaluation and correlation. Also recommend fo llow-up MRI with and without contrast to ensure resolution. Electronically signed by: Vargas Louise DO (07/25/2021 1:57 PM) [id number]
--- NOTE | 2021-07-25 14:40 | NUR ---
SW following. Discussed with RN, pt from home with sister, room air, cardiac diet. MRI and EEG today. Neuro following. Per RN, pt can discharge home if EEG and MRI are fine. RN advised no SW needs at this time. SW will continue to follow.
[2021-07-25 15:17] VITALS: BP 138/63
[2021-07-25] MEDS ORDERED: traMADol 50 MG TABLET PO PRN (15:30)
--- NOTE | 2021-07-25 16:28 | EEG ---
DATE OF SERVICE: 07/25/2021 ELECTROENCEPHALOGRAM EEG NUMBER: [id number]. OBJECTIVE: The patient is a 61-year-old female with new seizures. DESCRIPTION: This is a digital study. Electrodes are placed according to international 10-20 system. Bipolar and referential montages are available. Activation procedures typically include hyperventilation and intermittent photic stimulation. INTERPRETATION: The waking background consists of 9-10 Hz, 50-100 microvolt activity, symmetrically distributed over parietooccipital regions and reactive to eye opening. Hyperventilation and intermittent photic stimulation are noncontributory. Stage 1 sleep was achieved with normal electroencephalogram patterns. All computer -- identified abnormalities are reviewed in detail and none are actually abnormal. IMPRESSION: This electroencephalogram with the patient awake and asleep is within normal limits. There is no focal, paroxysmal, or epileptiform activity. Thank you for letting us help with the patient's care. CELINE DR: Cecilia TID: [id number]
--- NOTE | 2021-07-25 16:36 | NUR ---
patient called nurse station stating she thought she was having a seizure. staff entered room and patient was laying on her side, convulsing, and moaning. RN touched her back and called her name, patient rolled over onto back and looked at staff while still convulsing. this lasted approximately 60 seconds then patient relaxed. VSS. pg to Dr. Reyes who will put in orders for Keppra. also have order in place for Ativan for further seizurelike activity.
[2021-07-25] MEDS: levETIRAcetam 500 MG TABLET PO SCH ×2 (17:40→21:13)
[2021-07-25 19:00] VITALS: BP 95/68
[2021-07-25 23:00] VITALS: BP 101/58
[2021-07-26 03:00] VITALS: BP 99/77
[2021-07-26 07:00] VITALS: BP 118/85
--- NOTE | 2021-07-26 07:52 | PDOC ---
[employer] [facility] PROGRESS NOTE Date of Service DOS: DATE: 07/26/21 TIME: 07:51 Chief Complaint Chief Complaint New onset seizures x 5 depression, anxiety, neuropathic pain obese, BMI 31 diarrhea, seems improved dehydration, hypokalemia, History of Present Illness History of Present Illness 07/26/2021 Patient seen and examined Discussed with RN Chart reviewed 07/25/2021 Patient seen and examined in MRI room She just had an EEG a few minutes ago as well Discussed with RN Chart reviewed Vitals/I&O Vitals/I&O: Vital Signs Date Time Temp Pulse Resp B/P (MAP) Pulse Ox O2 Delivery O2 Flow Rate FiO2 07/26/21 03:00 97.8 77 16 99/77 (84) 95 Room Air 97.8 I & O 07/25/21 07/25/21 07/26/21 15:00 23:00 07:00 Intake Total 300 ml 800 ml Balance 300 ml 800 ml Physical Exam General: Alert, Cooperative, No acute distress Abdomen: Normal bowel sounds, Soft Extremities: No cyanosis, Normal pulses Skin: No significant lesion Labs Labs: Laboratory Tests Test 07/25/21 08:00 White Blood Count 10.7 x10^3/uL (4.0-11.0) Red Blood Count 4.28 x10^6/uL (3.50-5.40) Hemoglobin 13.5 g/dL (12.0-15.5) Hematocrit 40.4 % (36.0-47.0) Mean Corpuscular Volume 94 fL (79-100) Mean Corpuscular Hemoglobin 32 pg (25-35) Mean Corpuscular Hemoglobin Concent 34 g/dL (31-37) Red Cell Distribution Width 14.1 % (11.5-14.5) Platelet Count 319 x10^3/uL (140-400) Neutrophils (%) (Auto) 63 % (31-73) Lymphocytes (%) (Auto) 29 % (24-48) Monocytes (%) (Auto) 8 % (0-9) Eosinophils (%) (Auto) 1 % (0-3) Basophils (%) (Auto) 0 % (0-3) Neutrophils # (Auto) 6.7 x10^3/uL (1.8-7.7) Lymphocytes # (Auto) 3.1 x10^3/uL (1.0-4.8) Monocytes # (Auto) 0.8 x10^3/uL (0.0-1.1) Eosinophils # (Auto) 0.1 x10^3/uL (0.0-0.7) Basophils # (Auto) 0.0 x10^3/uL (0.0-0.2) Sodium Level 142 mmol/L (136-145) Potassium Level 3.5 mmol/L (3.5-5.1) Chloride Level 106 mmol/L (98-107) Carbon Dioxide Level 25 mmol/L (21-32) Anion Gap 11 (6-14) Blood Urea Nitrogen 10 mg/dL (7-20) Creatinine 0.8 mg/dL (0.6-1.0) Estimated GFR (Cockcroft-Gault) 72.4 BUN/Creatinine Ratio 13 (6-20) Glucose Level 91 mg/dL (70-99) Calcium Level 8.6 mg/dL (8.5-10.1) Magnesium Level 2.0 mg/dL (1.8-2.4) Total Bilirubin 0.5 mg/dL (0.2-1.0) Aspartate Amino Transf (AST/SGOT) 18 U/L (15-37) Alanine Aminotransferase (ALT/SGPT) 23 U/L (14-59) Alkaline Phosphatase 83 U/L (46-116) Total Protein 7.6 g/dL (6.4-8.2) Albumin 3.7 g/dL (3.4-5.0) Albumin/Globulin Ratio 0.9 (1.0-1.7) Assessment and Plan Assessmemt and Plan Problems Medical Problems: (1) Seizure Status: Acute New onset seizures x5 depression, anxiety, neuropathic pain obese, BMI 31 diarrhea, seems improved dehydration, hypokalemia, Plan Seizure precautions Continue Keppra if neurology agrees Appreciate neurology input Home meds DVT prophylaxis Full code Possible discharge later today on Keppra if neurology agrees Comment Review of Relevant I have reviewed the following items mary jane (where applicable) has been applied. Medications: Current Medications Medications (Trade) Dose Ordered Sig/Chalo Route PRN Reason Start Time Stop Time Status Last Admin Dose Admin Albuterol/ Ipratropium (Duoneb) 3 ml RTQID NEB 07/25/21 08:00 07/25/21 20:51 Potassium Chloride (Klor-Con) 20 meq DAILYWBKFT PO 07/25/21 08:00 07/25/21 11:17 Naproxen (Naprosyn) 500 mg BID PO 07/25/21 12:00 07/25/21 21:13 Tramadol HCl (Ultram) 50 mg PRN Q6HRS PRN PO PAIN 07/25/21 15:30 07/25/21 16:44 DC 07/25/21 15:40 Levetiracetam (Keppra) 500 mg BID PO 07/25/21 17:00 07/25/21 21:13 Justifications for Admission Other Justification TOM LAU III DO Jul 26, 2021 07:52
--- NOTE | 2021-07-26 08:37 | PDOC ---
PROGRESS NOTES Date of Service DATE: 07/26/21 TIME: 08:34 Assessment Problems Medical Problems: (1) Seizure Status: Acute She had another episode yesterday, she was responsive, confused, felt strange right before, did have some shaking movements, not a full-blown convulsion. A fterwards she slept. I have started levetiracetam. Her electroencephalogram is negative. Brain MRI shows posterior reversible encephalopathy syndrome. Blood pressure was elevated at admission, this is the most common cause of PRES She had hypokalemia following vomiting and diarrhea, magnesium level normal Plan Levetiracetam OK for discharge if blood pressure remains stable, but she will need to monitor this My office will arrange for an outpatient follow-up MRI No driving until she sees me again Follow-up with me or my nurse practitioner in 4-6 weeks Subjective Feels much better Objective Vital Signs Date Time Temp Pulse Resp B/P (MAP) Pulse Ox O2 Delivery O2 Flow Rate FiO2 07/26/21 03:00 97.8 77 16 99/77 (84) 95 Room Air 97.8 Intake and Output 07/26/21 07:00 Intake Total 1100 ml Balance 1100 ml Intake Oral 1100 ml # Voids 1 PHYSICAL EXAM Alert. Oriented to time, place and person. PERRL. EOMI. CN: no focal findings. Muscle tone: normal. Muscle strength: 5/5 DTR: 2+ Plantar reflex: Flexor Gait: A little arthritic, otherwise normal. Sensory exam: no abnormal findings. No cerebellar signs elicited. Review of Relevant I have reviewed the following items mary jane (where applicable) has been applied. Labs Laboratory Tests Test 07/24/21 18:15 07/24/21 21:08 07/25/21 08:00 White Blood Count 10.5 x10^3/uL (4.0-11.0) 10.7 x10^3/uL (4.0-11.0) Red Blood Count 4.28 x10^6/uL (3.50-5.40) 4.28 x10^6/uL (3.50-5.40) Hemoglobin 13.6 g/dL (12.0-15.5) 13.5 g/dL (12.0-15.5) Hematocrit 40.9 % (36.0-47.0) 40.4 % (36.0-47.0) Mean Corpuscular Volume 95 fL (79-100) 94 fL (79-100) Mean Corpuscular Hemoglobin 32 pg (25-35) 32 pg (25-35) Mean Corpuscular Hemoglobin Concent 33 g/dL (31-37) 34 g/dL (31-37) Red Cell Distribution Width 14.6 % (11.5-14.5) 14.1 % (11.5-14.5) Platelet Count 321 x10^3/uL (140-400) 319 x10^3/uL (140-400) Neutrophils (%) (Auto) 88 % (31-73) 63 % (31-73) Lymphocytes (%) (Auto) 9 % (24-48) 29 % (24-48) Monocytes (%) (Auto) 3 % (0-9) 8 % (0-9) Eosinophils (%) (Auto) 0 % (0-3) 1 % (0-3) Basophils (%) (Auto) 1 % (0-3) 0 % (0-3) Neutrophils # (Auto) 9.2 x10^3/uL (1.8-7.7) 6.7 x10^3/uL (1.8-7.7) Lymphocytes # (Auto) 0.9 x10^3/uL (1.0-4.8) 3.1 x10^3/uL (1.0-4.8) Monocytes # (Auto) 0.3 x10^3/uL (0.0-1.1) 0.8 x10^3/uL (0.0-1.1) Eosinophils # (Auto) 0.0 x10^3/uL (0.0-0.7) 0.1 x10^3/uL (0.0-0.7) Basophils # (Auto) 0.1 x10^3/uL (0.0-0.2) 0.0 x10^3/uL (0.0-0.2) Sodium Level 140 mmol/L (136-145) 139 mmol/L (136-145) 142 mmol/L (136-145) Potassium Level 3.6 mmol/L (3.5-5.1) 3.2 mmol/L (3.5-5.1) 3.5 mmol/L (3.5-5.1) Chloride Level 102 mmol/L (98-107) 103 mmol/L (98-107) 106 mmol/L (98-107) Carbon Dioxide Level 19 mmol/L (21-32) 24 mmol/L (21-32) 25 mmol/L (21-32) Anion Gap 19 (6-14) 12 (6-14) 11 (6-14) Blood Urea Nitrogen 12 mg/dL (7-20) 10 mg/dL (7-20) 10 mg/dL (7-20) Creatinine 0.9 mg/dL (0.6-1.0) 0.7 mg/dL (0.6-1.0) 0.8 mg/dL (0.6-1.0) Estimated GFR (Cockcroft-Gault) 63.2 84.5 72.4 BUN/Creatinine Ratio 13 (6-20) 13 (6-20) Glucose Level 149 mg/dL (70-99) 122 mg/dL (70-99) 91 mg/dL (70-99) Lactic Acid Level 5.6 mmol/L (0.4-2.0) 1.5 mmol/L (0.4-2.0) Calcium Level 8.4 mg/dL (8.5-10.1) 8.0 mg/dL (8.5-10.1) 8.6 mg/dL (8.5-10.1) Total Bilirubin 0.3 mg/dL (0.2-1.0) 0.5 mg/dL (0.2-1.0) Aspartate Amino Transf (AST/SGOT) 18 U/L (15-37) 18 U/L (15-37) Alanine Aminotransferase (ALT/SGPT) 23 U/L (14-59) 23 U/L (14-59) Alkaline Phosphatase 89 U/L (46-116) 83 U/L (46-116) Creatine Kinase 65 U/L (26-192) Total Protein 7.4 g/dL (6.4-8.2) 7.6 g/dL (6.4-8.2) Albumin 3.6 g/dL (3.4-5.0) 3.7 g/dL (3.4-5.0) Albumin/Globulin Ratio 0.9 (1.0-1.7) 0.9 (1.0-1.7) Ethyl Alcohol Level < 10 mg/dL (0-10) Troponin I High Sensitivity 28 ng/L (4-50) Magnesium Level 2.0 mg/dL (1.8-2.4) Medications Current Medications Sodium Chloride 1,000 ml @ 1,000 mls/hr 1X ONCE IV Last administered on 07/24/21at 18:56; Start 07/24/21 at 18:00; Stop 07/24/21 at 18:59; Status DC Ondansetron HCl (Zofran) 4 mg 1X ONCE IVP Last administered on 07/24/21at 19:30; Start 07/24/21 at 19:15; Stop 07/24/21 at 19:16; Status DC Ondansetron HCl (Zofran) 4 mg PRN Q8HRS PRN IVP NAUSEA/VOMITING; Start 07/24/21 at 21:15; Stop 07/25/21 at 21:14; Status DC Levothyroxine Sodium (Synthroid) 112 mcg DAILYAC PO Last administered on 07/25/21at 11:17; Start 07/25/21 at 07:30 Nortriptyline HCl (Pamelor) 25 mg TID PO Last administered on 07/25/21at 21:13; Start 07/24/21 at 22:30 Sucralfate (Carafate) 1 gm PRN TID PRN PO ABDOMINAL PAIN; Start 07/24/21 at 22:00 Gabapentin (Neurontin) 600 mg TID PO Last administered on 07/25/21at 21:13; Start 07/24/21 at 22:30 Albuterol/ Ipratropium (Duoneb) 3 ml RTQID NEB Last administered on 07/25/21at 20:51; Start 07/25/21 at 08:00 Potassium Chloride (Klor-Con) 40 meq 1X ONCE PO Last administered on 07/24/21at 23:49; Start 07/24/21 at 22:15; Stop 07/24/21 at 22:16; Status DC Potassium Chloride (Klor-Con) 20 meq DAILYWBKFT PO Last administered on at 11:17; Start 07/25/21 at 08:00 Naproxen (Naprosyn) 500 mg BID PO Last administered on 07/25/21at 21:13; Start 07/25/21 at 12:00 Tramadol HCl (Ultram) 50 mg PRN Q6HRS PRN PO PAIN Last administered on 07/25/21at 15:40; Start 07/25/21 at 15:30; Stop 07/25/21 at 16:44; Status DC Levetiracetam (Keppra) 500 mg BID PO Last administered on 07/25/21at 21:13; Start 07/25/21 at 17:00 Lorazepam (Ativan Inj) 2 mg PRN Q2HRS PRN IVP SEE COMMENTS; Start 07/25/21 at 16:45 Lorazepam (Ativan Inj) 1 mg PRN Q2HRS PRN IVP SEE COMMENTS; Start 07/25/21 at 16:45 Active Scripts Active Ondansetron Odt (Ondansetron) 4 Mg Tab.rapdis 1 Tab PO PRN Q6-8HRS PRN 5 Days Sucralfate 1 Gm Tablet 1 Tab PO TID PRN 10 Days Reported Eye Allergy Relief Drops (Naphazoline Hcl/Pheniramine) 15 Ml Drops 1 Drop OU PRN DAILY PRN Levothyroxine Sodium 112 Mcg Tablet 112 Mcg PO DAILYAC Naproxen 500 Mg Tablet 500 Mg PO BID Nortriptyline Hcl 25 Mg Capsule 25 Mg PO PRN TID PRN Tramadol Hcl 50 Mg Tablet 50 Mg PO Q6HRS PRN Gabapentin 600 Mg Tablet 600 Mg PO TID Iron (Ferrous Sulfate) 325 Mg Tablet 65 Mg PO DAILY Atrovent Hfa (Ipratropium [place]) 12.9 Gm Hfa.aer.ad 2 Puff IH DAILY Vitals/I & O Vital Sign - Last 24 Hours 07/25/21 07/25/21 07/25/21 07/25/21 08:57 11:30 12:12 15:17 Temp 98.0 98.0 98.0 98.0 Pulse 82 90 Resp 18 18 B/P (MAP) 148/87 (107) 138/63 (88) Pulse Ox 96 98 97 94 O2 Delivery Room Air Room Air Room Air Room Air 07/25/21 07/25/21 07/25/21 07/25/21 15:54 19:00 20:05 20:54 Temp 98.4 98.4 Pulse 73 Resp 20 B/P (MAP) 95/68 (77) Pulse Ox 95 98 O2 Delivery Room Air Room Air Room Air Room Air 07/25/21 07/26/21 23:00 03:00 Temp 97.9 97.8 97.9 97.8 Pulse 95 77 Resp 16 16 B/P (MAP) 101/58 (72) 99/77 (84) Pulse Ox 97 95 O2 Delivery Room Air Room Air Intake and Output 07/25/21 07/25/21 07/26/21 15:00 23:00 07:00 Intake Total 300 ml 800 ml Balance 300 ml 800 ml Images MRI BRAIN WO History:Reason: seizures / Spl. Instructions: / History: Technique: Multiplanar, multi sequential MR imaging was performed of the brain without contrast. Comparison: CT July 24, 2021 Findings: Ill-defined FLAIR hyperintensity within the bilateral cerebellar white matter. Additional FLAIR hyperintense signal within the subcortical region within the posterior bilateral parietal lobes, left greater than right. (image 22 and 21 flair sequence). No acute infarct. No intracranial hemorrhage. No mass effect. No hydrocephalus. Additional mild foci of FLAIR hyperintensities within the hemispheric white matter, most often due to chronic microvascular ischemia. Tiny lacunar infarct within the right cerebellum. Symmetric appearance of the bilateral hippocampal formations. No abnormal signal abnormality. Imaged orbits are unremarkable. Imaged paranasal sinuses and mastoid air cells a re clear. Impression: 1. Asymmetric FLAIR hyperintense signal within the subcortical cerebellum and posterior parietal lobes, left greater than right. Findings can be seen with posterior reversible encephalopathy syndrome and less likely encephalitis. Re commend further clinical evaluation and correlation. Also recommend follow-up MRI with and without contrast to ensure resolution. Justicifation of Admission Dx: Justifications for Admission: Justification of Admission Dx: N/A MABEL HAWKINS MD Jul 26, 2021 08:37
[2021-07-26] MEDS: IPRATRPIUM/ALBUTEROL 0.5/2.5MG 3 ML NEBU. NEB SCH ×2 (08:46→12:45)
[2021-07-26] MEDS: NORTRIPTYLINE 25 MG CAPSULE PO SCH ×2 (09:05→15:17)
[2021-07-26] MEDS: POTASSIUM CHLORIDE 20 MEQ TABLET.ER. PO SCH (09:06)
[2021-07-26] MEDS: GABAPENTIN 300 MG CAPSULE. PO SCH ×2 (09:06→15:18)
[2021-07-26] MEDS: levETIRAcetam 500 MG TABLET PO SCH (09:06)
[2021-07-26] MEDS: NAPROXEN 500 MG TABLET PO SCH (09:06)
[2021-07-26] MEDS: LEVOTHYROXINE 112 MCG TABLET PO SCH (09:07)
[2021-07-26] MEDS ORDERED: POTA20TA4 PO (10:35)
--- NOTE | 2021-07-26 10:58 | DS ---
DATE OF DISCHARGE: 07/26/2021 ADMISSION DIAGNOSIS: New onset seizure disorder. DISCHARGE DIAGNOSES: Resolving new onset seizure disorder, history of anxiety, neuropathic pain, obesity, chronic diarrhea, dehydration, hypokalemia. CONSULTS: Neurology. HOSPITAL COURSE: The patient is a pleasant, middle-aged female who presented with new onset seizure disorder. She had 5 seizures before she got to the ER, she has had 1-2 more since then. Here in the hospital, we did MRIs and EEGs, consulting Neurology. We placed her on Keppra. Today, I saw and examined her. She is at her baseline and wants to go home. I reviewed neurology note, she is okay with her going home. We plan to discharge on Keppra. DISPOSITION: Home. ACTIVITY: As tolerated. DIET: Low sodium. MEDICATIONS: Keppra 500 p.o. b.i.d. and we will continue her home medications, which include iron 65 mg a day, p.r.n. Naprosyn, Atrovent p.r.n., amitriptyline 25 at bedtime. ALLERGY EYEDROPS. P.r.n. Zofran, Carafate 1 gram t.i.d. p.r.n., and Synthroid 112 mcg p.o. daily. TOTAL TIME: [address]: Nicole TID: [id number]
[2021-07-26 11:00] VITALS: BP 142/82
--- NOTE | 2021-07-26 13:26 | NUR ---
SW following. Discussed with RN, discharge order for home with self care. RN advised no SW needs.
--- NOTE | 2021-07-26 15:37 | NUR ---
Discharge Note: JERED WILKS [address] Discharge instructions and discharge home medications reviewed with Patient and a copy given. All questions have been answered and understanding verbalized. The following instructions and handouts were given: follow up instructions, prescription for Keppra, medication education Discontinued lines and drains: 20 guage right forearm, tip intact. patient tolerated well. Patient discharged to home with self care via sister.
== END 2021-07-26 15:40 | disposition home or self-care (01) | DRG 101 ==
LOC: ER 17:52 → 5 SOUTH 21:14
PROVIDERS: ADMIT Internal Medicine; ATTEND Internal Medicine
DX: G40.909 Epilepsy, unspecified, not intractable, without status epilepticus (principal); E87.6 Hypokalemia; E86.0 Dehydration; E03.9 Hypothyroidism, unspecified; E66.9 Obesity, unspecified; F32.A Depression, unspecified; F41.9 Anxiety disorder, unspecified; I10 Essential (primary) hypertension; Z68.31 Body mass index [BMI] 31.0-31.9, adult; Z87.891 Personal history of nicotine dependence; Z90.49 Acquired absence of other specified parts of digestive tract; K21.9 Gastro-esophageal reflux disease without esophagitis; K52.9 Noninfective gastroenteritis and colitis, unspecified; M19.90 Unspecified osteoarthritis, unspecified site
CPT/HCPCS: 36415; 70450; 70551; 80048; 80053; 82550; 83605; 83735; 84484; 85025; 93005; 94640; 94760; 95816; 96361; 96374; G0480; J2405; J7030; 99285-25; G0378

== ENCOUNTER → 2021-08-10 | Outpatient (CLI) | payer OTHER ==
[2021-07-26 11:00] VITALS: BP 142/82
[~2021-08-10] MED LIST changes: +POTA20TA4 PO
--- NOTE | 2021-08-10 12:32 | KCIC ---
EXAMINATION: Magnetic resonance imaging (MRI) of the brain and brainstem without contrast 08/10/2021 11:00 AM HISTORY: Posterior reversible encephalopathy. Seizures and left upper extremity tremor TECHNIQUE: Multiplanar multi-weighted MRI of the brain and brainstem was performed without intravenou s contrast using the general brain protocol. COMPARISON: CT head 07/24/2021. FINDINGS: The scalp and calvarium are normal. The superior sagittal sinus demonstrates normal venous flow. The corpus callosum is normal in shape and signal intensity. The posterior fossa is unremarkable. The p ituitary and sella are normal. The brainstem and craniocervical junction are unremarkable. There are T2/FLAIR signal hyperintense foci in the periventricular and subcortical white matter most suggestiv e of mild chronic small vessel ischemic changes. Hippocampi are symmetric in signal intensity and mor phology. There is no heterotopic munguia matter. No malformation of cortical development. Diffusion weighted images reveal no hyperintensities to suggest acute cerebral infarction. The suscep tibility weighted sequences reveal no evidence of acute or chronic hemorrhage. The ventricles are nor mal in size and position without evidence of hydrocephalus. The paranasal sinuses are normal. The visualized portions of the mastoids are unremarkable. The foca l fluid signal intensity identified along the superior left eyelid measuring 10 mm x 4 mm. Normal bruna w voids are demonstrated in the carotid arteries and basilar artery. IMPRESSION: 1. No evidence for acute or subacute ischemia. 2. No structural abnormality is identified. 3. There are T2/FLAIR signal hyperintense foci in the periventricular and subcortical white matter mo st suggestive of mild chronic small vessel ischemic changes. 4. Cystic lesion identified along the superior left eyelid. Correlate with sebaceous cyst or chalazio n. Electronically signed by: Barbara Brewer MD (08/10/2021 12:30 PM) [id number]
== END ==
LOC: KCIC MRI 10:29
PROVIDERS: ATTEND Psychiatry & Neurology Neurology with Special Qualifications in Child Neurology
DX: H02.826 Cysts of left eye, unspecified eyelid (principal); G93.89 Other specified disorders of brain; I67.83 Posterior reversible encephalopathy syndrome
CPT/HCPCS: 70551

== ENCOUNTER → 2021-11-22 | Outpatient (CLI) | payer OTHER ==
[~2021-11-22] MED LIST changes: +ASPI325T8 PO; +ESCITALOPRAM OX20 MG PO; +LEVE500T21 PO; +OXYC1TAB15 PO
[2021-11-22 13:46] LABS: BASO # 0.2 x10^3/uL (0.0-0.2); BASO % 2 % (0-3); EOS # 0.5 x10^3/uL (0.0-0.7); EOS % 7 % (0-3); HEMATOCRIT 39.6 % (36.0-47.0); HEMOGLOBIN 13.3 g/dL (12.0-15.5); LYMPH % 43 % (24-48); MEAN CORPUSCULAR HEMOGLOBIN 33 pg (25-35); MEAN CORPUSCULAR HGB CONC 34 g/dL (31-37); MEAN CORPUSCULAR VOLUME 97 fL (79-100); MONO # 0.7 x10^3/uL (0.0-1.1); MONO % 9 % (0-9); NEUT # 2.7 x10^3/uL (1.8-7.7); NEUT % 38 % (31-73); PLATELET COUNT 275 x10^3/uL (140-400); RED BLOOD COUNT 4.08 x10^6/uL (3.50-5.40); RED CELL DISTRIBUTION WIDTH 13.2 % (11.5-14.5)
[2021-11-22 13:56] LABS: PROTHROMBIN TIME PATIENT 12.6 SEC (11.7-14.0)
[2021-11-22 13:59] LABS: ALBUMIN 4.1 g/dL (3.4-5.0); CALCIUM 8.8 mg/dL (8.5-10.1); POTASSIUM 3.9 mmol/L (3.5-5.1)
[2021-11-22 14:14] LABS: BACTERIA,URINE 0 /HPF (0-FEW); RBC,URINE 0 /HPF (0-2); WBC,URINE OCC /HPF (0-4)
[2021-11-23 07:20] LABS: HEMOGLOBIN A1C 5.5 % (4.8-5.6)
== END ==
LOC: SURGPAT 12:59
PROVIDERS: ATTEND Orthopaedic Surgery
DX: Z01.812 Encounter for preprocedural laboratory examination (principal); M16.12 Unilateral primary osteoarthritis, left hip
CPT/HCPCS: 36415; 80048; 80307; 81001; 82040; 82306; 83036; 85025; 85610; 85651; 85730; 87641

== ENCOUNTER 2021-12-06 07:06 | Observation (INO) | payer OTHER ==
[2021-11-22 14:03] VITALS: BP 133/64
[~2021-12-06] VITALS: Ht 165.1 cm; Wt 95.9 kg
[2021-12-06] VITALS (7 sets, daily range): BP systolic 95–132; BP diastolic 49–75
[~2021-12-06 07:06] MED LIST changes: +ACETAMINOPHEN 500 MG TABLET PO PRN; -ASPI325T8 PO; +GABAPENTIN 300 MG CAPSULE. PO PRN; +IV RINGERS,LACTATED 1000ML 1,000 ML IV SCH; +MELOXICAM 7.5 MG TABLET PO PRN; +MORPHINE SULFATE 2 MG/ML INJ. IVP PRN; -OXYC1TAB15 PO; +PROCHLORPERAZINE 10 MG/2 ML VIAL. IVP PRN; +TRANEXAMIC ACID 1,000 MG in IV NS 50ML -- 1ST BAG INJ ONE; +TV=62ml MORPHINE 5 MG, KETOROLAC 30 MG, ROPIV, EPI INT ART ONE; +fentaNYL PF VIAL 100 MCG/2 ML VIAL IVP PRN
[2021-12-06] MEDS ORDERED: TRANEXAMIC ACID 1,000 MG in IV NS 50ML -- 2ND BAG INJ ONE (08:00)
[2021-12-06] MEDS ORDERED: ceFAZolin 2GM PREMIX 2 GM/50 ML BAG IV ONE (08:45)
[2021-12-06] MEDS ORDERED: PHENYLEPHRINE 10 MG/ML VIAL. ONE (09:42)
[2021-12-06] MEDS ORDERED: LIDOCAINE 2% PF 5 ML VIAL. ONE ×2 (09:42→11:42)
[2021-12-06] MEDS ORDERED: PROPOFOL 10 MG/ML (20ML) VIAL. IV ONE ×2 (09:42→11:42)
[2021-12-06] MEDS ORDERED: DEXAMETHASONE SOD PHOS 4 MG/ML VIAL ONE ×2 (09:42→11:42)
[2021-12-06] MEDS ORDERED: SUCCINYLCHOLINE 200 MG/10 ML VIAL. ONE ×2 (09:46→12:18)
[2021-12-06] MEDS ORDERED: ONDANSETRON PF 4 MG/2 ML VIAL. ONE (11:42)
[2021-12-06] MEDS ORDERED: MIDAZOLAM HCL/PF 2 MG/2 ML VIAL. ONE (12:19)
[2021-12-06] MEDS ORDERED: fentaNYL PF VIAL 100 MCG/2 ML VIAL ONE ×3 (12:19→15:06)
[2021-12-06] MEDS ORDERED: 0.9 % SODIUM CHLORIDE 10 ML DISP.SYRIN. IV PRN (12:45)
[2021-12-06] MEDS ORDERED: DEXTROSE 50% 25 GM / 50ML DISP.SYRIN. IV PRN ×2 (12:45→18:30)
[2021-12-06] MEDS ORDERED: IV DEXTROSE 5% 250 ML BAG. IV PRN (12:45)
[2021-12-06] MEDS ORDERED: oxyCODONE IR 5 MG TABLET PO PRN (12:45)
[2021-12-06] MEDS ORDERED: CALCIUM CARBONATE 500 MG TAB.CHEW PO PRN (12:45)
[2021-12-06] MEDS ORDERED: TRANEXAMIC ACID in NS IVPB 50 ML ONE (13:09)
[2021-12-06] MEDS ORDERED: GLYCOPYRROLATE 1 MG/5 ML VIAL. ONE (14:07)
[2021-12-06] MEDS ORDERED: PHENYLEPHRINE in 0.9% NACL PF 1 MG/10 ML SYRINGE. IV ONE (14:14)
--- NOTE | 2021-12-06 14:53 | PDOC4 ---
OPERATIVE NOTE Date: Date: Dec 06, 2021 Pre-Op Diagnosis: 61 y/o F L hip osteoarthritis Post-Op Diagnosis: 1. 61 y/o F L hip osteoarthritis 2. s/p L MABEL Procedure Performed: 1. Left total hip arthroplasty Surgeon: Qian Anesthesia Type: General Blood Loss: 150cc Specimans Obtained: Products of left total hip arthroplasty Complications: Patient tolerated the procedure well without any complications. Operative Note: See dictation. PEG CORDERO Dec 06, 2021 14:53
[2021-12-06] MEDS ORDERED: PROCHLORPERAZINE 10 MG/2 ML VIAL. ONE (15:06)
[2021-12-06] MEDS ORDERED: MORPHINE SULFATE 2 MG/ML INJ. ONE (15:06)
[2021-12-06] MEDS ORDERED: HYDROmorphone 2 MG/ML INJ. ONE (15:06)
[2021-12-06] MEDS: fentaNYL PF VIAL 100 MCG/2 ML VIAL IVP PRN ×2 (15:12→15:25)
[2021-12-06] MEDS: HYDROmorphone 2 MG/ML INJ. IVP PRN ×2 (16:01→16:45)
--- NOTE | 2021-12-06 17:12 | RAD ---
EXAM: Frontal pelvis with two-view left hip. HISTORY: Arthroplasty. COMPARISON: 04/21/2021. FINDINGS: A left total hip arthroplasty is in expected alignment. The acetabular component is fixed b y 2 screws and the femoral component uncemented. No fractures are identified. Soft tissue gas is note d. The joint spaces and alignment of the right hip are maintained. There are mild degenerative changes o f the lower lumbar spine. IMPRESSION: 1. Left total hip arthroplasty in expected alignment. Electronically signed by: Johnnie العراقي MD (12/06/2021 5:10 PM) [id number]
[2021-12-06] MEDS: ONDANSETRON ODT 4 MG TAB.RAPDIS. PO SCH (17:39)
[2021-12-06] MEDS: ONDANSETRON PF 4 MG/2 ML VIAL. IVP SCH (17:40)
--- NOTE | 2021-12-06 18:17 | PDOC1 ---
History and Physical Date of Service: DOS: DATE: 12/06/21 TIME: 18:16 Chief Complaint: Chief Complain: Hip pain History of Present Illness: HPI: 61-year-old female who presents to outpatient surgery for degenerative joint disease for her left hip. Status post left total hip arthroplasty with Dr. Laughlin. Hospitalists group have been consulted for medical management. Patient seen in recliner today with no pain and tolerating diet. She will participate with physical therapy today and will determine her mobility status and recommendations from physical therapy for placement. Past Medical/Surgical History: PMH/PSH: PMHx: PRES, seizures, HTN, sepsis from UTI, DJD PSURGHx: Appendectomy, Left elbow surgery, right patellar surgery Allergies: Allergies: Coded Allergies: No Known Drug Allergies (Unverified , 11/22/21) Family History: Family History: Reviewed with no relative findings in the chart Social History: Social History: History of smoking and occasional alcohol use Current Medications: Current Medications Current Medications Fentanyl Citrate (Fentanyl 2ml Vial) 25 mcg PRN Q5MIN PRN IVP MILD PAIN 1-3; Start 12/06/21 at 06:00; Stop 12/07/21 at 05:59 Fentanyl Citrate (Fentanyl 2ml Vial) 50 mcg PRN Q5MIN PRN IVP MODERATE PAIN 4-6 Last administered on 12/06/21at 15:12; Start 12/06/21 at 06:00; Stop 12/07/21 at 05:59 Morphine Sulfate (Morphine Sulfate) 1 mg PRN Q10MIN PRN IVP SEVERE PAIN 7-10; Start 12/06/21 at 06:00; Stop 12/07/21 at 05:59 Ringer's Solution 1,000 ml @ 30 mls/hr Q24H IV Last administered on 12/06/21at 09:09; Start 12/06/21 at 06:00; Stop 12/06/21 at 17:59; Status DC Hydromorphone HCl (Dilaudid) 0.5 mg PRN Q10MIN PRN IVP SEVERE PAIN 7-10, 2nd CHOICE Last administered on 12/06/21at 16:45; Start 12/06/21 at 06:00; Stop 12/07/21 at 05:59 Prochlorperazine Edisylate (Compazine) 5 mg PACU PRN PRN IVP NAUSEA, MRX1; Start 12/06/21 at 06:00; Stop 12/07/21 at 05:59 Meloxicam (Mobic) 15 mg 1X PREOP PRN PO PRIOR TO PROCEDURE Last administered on 12/06/21at 09:02; Start 12/06/21 at 06:00; Stop 12/06/21 at 18:00; Status DC Gabapentin (Neurontin) 600 mg 1X PREOP PRN PO PRIOR TO PROCEDURE; Start 12/06/21 at 06:00; Stop 12/06/21 at 18:00; Status DC Acetaminophen (Tylenol) 1,000 mg 1X PREOP PRN PO PRIOR TO PROCEDURE Last administered on 12/06/21at 09:02; Start 12/06/21 at 06:00; Stop 12/06/21 at 18:00; Status DC Cefazolin Sodium/ Dextrose 50 ml @ 100 mls/hr 1X PREOP PRN IV PRIOR TO PROCEDURE; Start 12/06/21 at 06:00; Stop 12/06/21 at 18:00; Status DC Tranexamic Acid 50 ml @ 50 mls/hr 1X PERIOP ONCE INJ Last administered on 12/06/21at 13:55; Start 12/06/21 at 06:00; Stop 12/06/21 at 06:59; Status DC Tranexamic Acid 50 ml @ 50 mls/hr 1X PERIOP ONCE INJ ; Start 12/06/21 at 08:00; Stop 12/06/21 at 08:59; Status DC Morphine Sulfate 5 mg/Ketorolac Tromethamine 30 mg/Ropivacaine 60 ml/Epinephrine HCl 0.5 mg/ Miscellaneous 63 ml @ 63 mls/hr 1X PERIOP ONCE INT ART Last administered on 12/06/21at 13:57; Start 12/06/21 at 06:00; Stop 12/06/21 at 06:59; Status DC Propofol (Diprivan) 200 mg STK-MED ONCE IV ; Start 12/06/21 at 09:42; Stop 12/06/21 at 09:42; Status DC Lidocaine HCl (Lidocaine Pf 2% Vial) 5 ml STK-MED ONCE .ROUTE ; Start 12/06/21 at 09:42; Stop 12/06/21 at 09:42; Status DC Dexamethasone Sodium Phosphate (Decadron) 4 mg STK-MED ONCE .ROUTE ; Start 12/06/21 at 09:42; Stop 12/06/21 at 09:42; Status DC Phenylephrine HCl (Adi-Synephrine Inj) 10 mg STK-MED ONCE .ROUTE ; Start 12/06/21 at 09:42; Stop 12/06/21 at 09:42; Status DC Succinylcholine Chloride (Anectine) 200 mg STK-MED ONCE .ROUTE ; Start 12/06/21 at 09:46; Stop 12/06/21 at 09:46; Status DC Propofol (Diprivan) 200 mg STK-MED ONCE IV ; Start 12/06/21 at 11:42; Stop 12/06/21 at 11:42; Status DC Lidocaine HCl (Lidocaine Pf 2% Vial) 5 ml STK-MED ONCE .ROUTE ; Start 12/06/21 at 11:42; Stop 12/06/21 at 11:42; Status DC Dexamethasone Sodium Phosphate (Decadron) 4 mg STK-MED ONCE .ROUTE ; Start 12/06/21 at 11:42; Stop 12/06/21 at 11:42; Status DC Ondansetron HCl (Zofran) 4 mg STK-MED ONCE .ROUTE ; Start 12/06/21 at 11:42; Stop 12/06/21 at 11:42; Status DC Succinylcholine Chloride (Anectine) 200 mg STK-MED ONCE .ROUTE ; Start 12/06/21 at 12:18; Stop 12/06/21 at 12:19; Status DC Fentanyl Citrate (Fentanyl 2ml Vial) 100 mcg STK-MED ONCE .ROUTE ; Start 12/06/21 at 12:19; Stop 12/06/21 at 12:19; Status DC Midazolam HCl (Versed) 2 mg STK-MED ONCE .ROUTE ; Start 12/06/21 at 12:19; Stop 12/06/21 at 12:19; Status DC Morphine Sulfate (Morphine Sulfate) 2 mg PRN Q1HR PRN IVP PAIN-SEE COMMENTS; Start 12/06/21 at 12:45 Senna/Docusate Sodium (Senna Plus) 1 tab DAILY PO ; Start 12/07/21 at 09:00 Magnesium Hydroxide (Milk Of Magnesia) 2,400 mg 1X PRN PRN PO CONSTIPATION; Start 12/07/21 at 06:00; Stop 12/08/21 at 05:59 Bisacodyl (Dulcolax Supp) 10 mg 1X PRN PRN VA CONSTIPATION; Start 12/07/21 at 16:00; Stop 12/08/21 at 15:59 Calcium Carbonate/ Glycine (Tums) 500 mg PRN QID PRN PO INDIGESTION; Start 12/06/21 at 12:45 Sodium Chloride (Normal Saline Flush) 10 ml QSHIFT PRN IV AFTER MEDS AND BLOOD DRAWS; Start 12/06/21 at 12:45 Acetaminophen (Tylenol) 1,000 mg Q6H PO ; Start 12/07/21 at 09:00 Ondansetron HCl (Zofran) 4 mg Q6HRS IVP ; Start 12/06/21 at 18:00; Stop 12/07/21 at 12:01 Ondansetron HCl (Zofran Odt) 4 mg Q6HRS PO Last administered on 12/06/21at 17:39; Start 12/06/21 at 18:00; Stop 12/07/21 at 12:01 Oxycodone HCl (Roxicodone) 5 mg PRN Q4HRS PRN PO Pain score 4-6; Start 12/06/21 at 12:45 Dextrose (Dextrose 50%-Water Syringe) 12.5 gm PRN Q15MIN PRN IV SEE COMMENTS; Start 12/06/21 at 12:45 Dextrose (Iv Dextrose 5%) 250 ml PRN Q15MIN PRN IV SEE COMMENTS; Start 12/06/21 at 12:45 Cefazolin Sodium/ Dextrose 50 ml @ 100 mls/hr Q6H IV ; Start 12/06/21 at 19:00; Stop 12/07/21 at 07:29 Tranexamic Acid 50 ml @ As Directed STK-MED ONCE .ROUTE ; Start 12/06/21 at 13:09; Stop 12/06/21 at 13:09; Status DC Fentanyl Citrate (Fentanyl 2ml Vial) 100 mcg STK-MED ONCE .ROUTE ; Start 12/06/21 at 14:01; Stop 12/06/21 at 14:02; Status DC Glycopyrrolate (Robinul) 1 mg STK-MED ONCE .ROUTE ; Start 12/06/21 at 14:07; Stop 12/06/21 at 14:08; Status DC Phenylephrine HCl (PHENYLEPHRINE in 0.9% NACL PF) 1 mg STK-MED ONCE IV ; Start 12/06/21 at 14:14; Stop 12/06/21 at 14:15; Status DC Hydromorphone HCl (Dilaudid) 2 mg STK-MED ONCE .ROUTE ; Start 12/06/21 at 15:06; Stop 12/06/21 at 15:06; Status DC Fentanyl Citrate (Fentanyl 2ml Vial) 100 mcg STK-MED ONCE .ROUTE ; Start 12/06/21 at 15:06; Stop 12/06/21 at 15:06; Status DC Morphine Sulfate (Morphine Sulfate) 2 mg STK-MED ONCE .ROUTE ; Start 12/06/21 at 15:06; Stop 12/06/21 at 15:06; Status DC Prochlorperazine Edisylate (Compazine) 10 mg STK-MED ONCE .ROUTE ; Start 12/06/21 at 15:06; Stop 12/06/21 at 15:07; Status DC Active Scripts Active Ondansetron Odt (Ondansetron) 4 Mg Tab.rapdis 1 Tab PO PRN Q6-8HRS PRN 5 Days Reported Escitalopram Oxalate 20 Mg Tablet 20 Mg PO DAILY Levetiracetam 500 Mg Tab.er.24h 1 Tab PO BID 30 Days Levothyroxine Sodium 112 Mcg Tablet 112 Mcg PO DAILYAC Naproxen 500 Mg Tablet 500 Mg PO BID Nortriptyline Hcl 25 Mg Capsule 25 Mg PO PRN TID PRN Tramadol Hcl 50 Mg Tablet 50 Mg PO Q6HRS PRN Gabapentin 600 Mg Tablet 600 Mg PO TID ROS: Review of Systems Review of System REVIEW OF SYSTEMS: GENERAL: Denies weakness SKIN: No bruising, hair changes or rashes. EYES: No blurred, double or loss of vision. NOSE AND THROAT: No history of nosebleeds, hoarseness or sore throat. HEART: No history of palpitations, chest pain or shortness of breath on exertion. LUNGS: Denies cough, hemoptysis, wheezing or shortness of breath. GASTROINTESTINAL: Denies changes in appetite, nausea, vomiting, diarrhea or constipation. GENITOURINARY: No history of frequency, urgency, hesitancy or nocturia. NEUROLOGIC: Denies history of numbness, tingling, or tremor. PSYCHIATRIC: No history of panic, anxiety or depression. ENDOCRINE: No history of heat or cold intolerance, polyuria or polydipsia. EXTREMITIES: Denies joint pain, pain on walking or stiffness. Physical Exam: Vital Signs: Vital Signs Date Time Temp Pulse Resp B/P (MAP) Pulse Ox O2 Delivery O2 Flow Rate FiO2 12/06/21 17:45 95 18 110/75 (87) 93 Nasal Cannula 4.0 12/06/21 16:40 97.5 97.5 Physcial Exam: General: Well developed, well nourished, no acute distress, well appearing HEENT: Pupils equally round and reactive to light, EOMI, no discharge, normal conjunctiva Neck: Supple, no nuchal rigidity, no JVD, trachea midline, no tenderness Cardiac: RRR, no murmurs, no gallops, no rubs Chest/Lungs: CTAB, no wheeze, no rhonchi, no crackles Abdomen: soft, non-distended, no guarding, no peritoneal signs, non-tender Back: No tenderness Extremities: Left hip dressings are clear dry and intact. No edema, pulses intact, non-tender,capillary refill <3 sec bilateral upper and lower extremities, Neuro: Alert and oriented x 4, no focal deficits, normal speech Labs: Labs: Laboratory Tests Test 12/06/21 08:10 POC SARS CoV-2 Antigen Negative (NEGATIVE) Laboratory Tests Test 12/06/21 08:10 POC SARS CoV-2 Antigen Negative (NEGATIVE) Images: Images PROCEDURE: HIP LEFT 2V WITH PELVIS EXAM: Frontal pelvis with two-view left hip. HISTORY: Arthroplasty. COMPARISON: 04/21/2021. FINDINGS: A left total hip arthroplasty is in expected alignment. The acetabular component is fixed by 2 screws and the femoral component uncemented. No fractures are identified. Soft tissue gas is noted. The joint spaces and alignment of the right hip are maintained. There are mild degenerative changes of the lower lumbar spine. IMPRESSION: 1. Left total hip arthroplasty in expected alignment. Assessment/Plan Assessment/Plan Left hip pain with degenerative joint disease status post left hip MABEL 12/06/2021 PO and IV pain control PT OT evaluation DVT prophylaxis Lovenox then aspirin 325 twice daily at time of discharge Full code Disposition: Home health Justifications for Admission Other Justification BRIDGER DAUGHERTY MD Dec 06, 2021 18:17
[2021-12-06] MEDS ORDERED: diphenhydrAMINE 50 MG/ML VIAL IVP PRN (18:30)
[2021-12-06] MEDS ORDERED: oxyCODONE/APAP 5/325 1 TAB TABLET PO PRN (18:30)
[2021-12-06] MEDS ORDERED: PROCHLORPERAZINE 10 MG/2 ML VIAL. IV PRN (18:30)
[2021-12-06] MEDS ORDERED: LORazepam 0.5 MG TABLET PO PRN (18:30)
[2021-12-06] MEDS ORDERED: DOCUSATE SODIUM 100 MG CAPSULE. PO PRN (18:30)
[2021-12-06] MEDS ORDERED: MORPHINE SULFATE 2 MG/ML INJ. IV PRN (18:30)
[2021-12-06] MEDS ORDERED: ACETAMINOPHEN 325 MG TABLET. PO PRN (18:30)
[2021-12-06] MEDS ORDERED: SENNOSIDES 8.6 MG TABLET PO PRN (18:30)
[2021-12-06] MEDS ORDERED: ONDANSETRON PF 4 MG/2 ML VIAL. IVP PRN (18:30)
[2021-12-06] MEDS ORDERED: diphenhydrAMINE HCL 25 MG CAPSULE PO PRN ×2 (18:30)
[2021-12-06] MEDS ORDERED: ZOLPIDEM 5 MG TABLET. PO PRN (18:30)
[2021-12-06] MEDS ORDERED: MORPHINE SULFATE 2 MG/ML INJ. IVP PRN (18:30)
[2021-12-06] MEDS: levETIRAcetam 500 MG TABLET PO SCH (21:00)
[2021-12-06] MEDS: NORTRIPTYLINE 25 MG CAPSULE PO SCH (21:00)
[2021-12-06] MEDS: GABAPENTIN 300 MG CAPSULE. PO SCH (21:00)
[2021-12-06] MEDS: oxyCODONE/APAP 5/325 1 TAB TABLET PO PRN (23:04)
--- NOTE | 2021-12-06 23:38 | OP ---
DATE OF SURGERY: 12/06/2021 PREOPERATIVE DIAGNOSIS: Severe degenerative joint disease, left hip. POSTOPERATIVE DIAGNOSIS: Severe degenerative joint disease, left hip. PROCEDURE: Left total hip arthroplasty. SURGEON: Mina Laughlin Jr, DO PHYSICAL SCIENCE PROFESSOR: BEBETO Eaton ANESTHESIA: General. COMPLICATIONS: None. ESTIMATED BLOOD LOSS: 150 mL. DESCRIPTION OF PROCEDURE: The patient was given anesthesia upon entering the room, was placed in the lateral decubitus position. Bony prominences were well padded. Appropriate immobilization was done around the area of the hip. Left hip was then prepped and draped in a sterile fashion. Incision was made through skin and subcutaneous tissues for an anterolateral approach to the hip. Superficial tissues were coagulated using Bovie knife. This was taken down to the iliotibial band, which was split in line with the skin incision. This was retracted anteriorly and posteriorly with a Charnley retractor and then the inferior one-third to almost one-half of the gluteus medius was removed from its insertion of the greater trochanter and retracted anteriorly. This was exposing the capsule of the hip. The capsule was then opened up in an H fashion and after this was noted to have severe changes on the femoral head, this femoral head was manually dislocated. The leg was placed in the side bag and then after the guide was placed on the proximal femur to mary jane the area of resection, the resection on the femoral neck has undergone one fingerbreadth above the lesser trochanter. This was noted to have severe degenerative changes again along the entire femoral head. This was noted also along the area of the acetabular side of the joint. Following this, the labral tissue was removed as well as very large osteophytes about the periphery. The craig size of the acetabulum was noted at that point. This head was measured and noted to be a size 49. Reaming began at size 46 and continued up to size 52, which was noted to be the most appropriate size for the femoral component. After this was irrigated and suctioned dry, the actual component was impacted and noted to be stable; however, for further fixation, two screws were placed, one of 20 and one of 25 mm of length, both received a good capture of the pelvis bone. The polyethylene was then placed in appropriate position. This was an elevated rim, size E. This was then impacted. Following this, the leg was then placed back into the side bag. This was opened up with a snuff box finisher followed by the IM guide, which was inserted and removed and broaching began at size [address] up to size 4, size per 1 mm increments. As a standard upon size 4, this was noted to be appropriate to fill the canal and was noted to be very stable and secure. This was trialled using a -2.5 followed by the neutral and -2.5 was most stable, therefore, this was manually dislocated. All trial components were removed. This was thoroughly irrigated again and suctioned dry. The actual femoral component was impacted and noted to be stable and secure. The femoral head, -2.5 ceramic head was then affixed to the proximal femoral component, impacted and noted to be stable and secure. This was then relocated into the acetabulum and taken through extremes in range of motion. Full range of motion was noted as well as extreme range of motion with full stability noted to the hip. This was then thoroughly irrigated and suctioned dry. The hip was then irrigated thoroughly with Betadine and then this was completely irrigated out and suctioned dry. Tranexamic acid was placed within the hip. The capsule was reapproximated in an interrupted fashion using 0 Ethibond. The same was used to reattach the gluteus medius along to its original insertion site of the greater trochanter. The iliotibial band was brought together with 1 suture with 0 Ethibond and then this was run with a Stratafix. Superficial tissue and skin was reapproximated. Sterile dressing was applied. The patient was then taken from the operative bed to the postoperative bed, taken to the PACU in stable condition. MOI/ASTON GOMEZ: Juan TID: [id number]
[2021-12-07 03:37] VITALS: BP 121/42
[2021-12-07] MEDS ORDERED: MAGNESIUM HYDROXIDE 2,400 MG/30 ML ORAL.SUSP. PO PRN (06:00)
[2021-12-07] MEDS: ONDANSETRON PF 4 MG/2 ML VIAL. IVP SCH ×3 (06:00→12:00)
[2021-12-07] MEDS: ONDANSETRON ODT 4 MG TAB.RAPDIS. PO SCH ×3 (06:00→12:00)
[2021-12-07] MEDS: LEVOTHYROXINE 112 MCG TABLET PO SCH (06:45)
[2021-12-07] MEDS: oxyCODONE/APAP 5/325 1 TAB TABLET PO PRN (06:46)
--- NOTE | 2021-12-07 06:55 | PDOC ---
PROGRESS NOTES Date of Service DATE: 12/07/21 TIME: 06:50 Subjective Subjective POD #1 s/p L MABEL Patient was seen and examined this morning at bedside. Awake sitting upright in bed watching TV. Reports pain to left hip well controlled. Tolerating p.o. intake. Denies chest pain or shortness of air. No abdominal pain or discomfort. Patient was able to tolerate dinner yesterday evening. No incentive spirometer at bedside. No acute events reported overnight. Objective Vital Signs Vital Signs Date Time Temp Pulse Resp B/P (MAP) Pulse Ox O2 Delivery O2 Flow Rate FiO2 12/07/21 06:46 20 Room Air 12/07/21 03:37 98.0 75 121/42 (68) 94 4.0 98.0 Physical Exam Orthopedic examination of the left lower extremity: Skin is warm and dry. Surgical dressing intact over the lateral aspect of the left hip. No drainage or discharge noted. Compartments are soft compressible. EHL/FHL intact. Plantarflexion/dorsiflexion intact. Cap refill brisk. Left lower extremity is warm and well-perfused. Sensation to light touch intact over all dermatomes. Calf nontender. No pain with passive stretch. Negative Homans' sign. No evidence of thrombus. Labs Laboratory Tests Test 12/06/21 08:10 12/06/21 20:23 POC SARS CoV-2 Antigen Negative (NEGATIVE) Glucose (Fingerstick) 159 mg/dL (70-99) Laboratory Tests Test 12/06/21 08:10 12/06/21 20:23 POC SARS CoV-2 Antigen Negative (NEGATIVE) Glucose (Fingerstick) 159 mg/dL (70-99) Imaging Postoperative plain film x-rays of the left hip and pelvis reviewed this morning. Orthopedic hardware and normal alignment with no acute postoperative abnormalities noted. Assessment Assessment 61 y/o F L hip osteoarthritis s/p L MABEL 12/06 - Qian * TDWB LLE * PT/OT for mobilization, gait training and fall prevention * Anterior lateral hip precautions to include no extension past neutral, no adduction past midline, no external rotation past neutral x6 weeks. * Recommend utilizing a walker to aid with ambulation and prevent falls * DVT ppx (Lovenox); ASA 325mg BID on discharge * Post-op abx (Cefazolin) * Maintain surgical dressings * ICE operative hip prn * Hgb this AM pending * Encourage use of IS while awake * CM for discharge planning; awaiting therapy recommendations post-operatively * Follow up with orthopedics in 2 weeks following discharge from the hospital. Call to schedule prior to discharge [phone]. Justicifation of Admission Dx: Justifications for Admission: Justification of Admission Dx: N/A PEG CORDERO Dec 07, 2021 06:55
[2021-12-07 07:00] VITALS: BP 124/68
[2021-12-07] MEDS ORDERED: ENOXAPARIN 40 MG/0.4 ML SYRINGE. SQ SCH (07:00)
--- NOTE | 2021-12-07 07:27 | NUR ---
IV restarted LFA for Ancef doses. Percocet managing her pain well. Ice pack placed to left hip. Dr. Laughlin here.
[2021-12-07 07:45] LABS: BASO % 0 % (0-3); EOS % 0 % (0-3); HEMATOCRIT 32.6 % (36.0-47.0); HEMOGLOBIN 11.1 g/dL (12.0-15.5); LYMPH # 1.5 x10^3/uL (1.0-4.8); LYMPH % 12 % (24-48); MEAN CORPUSCULAR HEMOGLOBIN 33 pg (25-35); MEAN CORPUSCULAR HGB CONC 34 g/dL (31-37); MEAN CORPUSCULAR VOLUME 98 fL (79-100); MONO # 0.9 x10^3/uL (0.0-1.1); MONO % 7 % (0-9); NEUT # 10.8 x10^3/uL (1.8-7.7); NEUT % 81 % (31-73); PLATELET COUNT 230 x10^3/uL (140-400); RED BLOOD COUNT 3.34 x10^6/uL (3.50-5.40); RED CELL DISTRIBUTION WIDTH 13.1 % (11.5-14.5); WHITE BLOOD COUNT 13.3 x10^3/uL (4.0-11.0)
[2021-12-07 08:11] LABS: CALCIUM 8.4 mg/dL (8.5-10.1); CREATININE 0.9 mg/dL (0.6-1.0); GFR 63.2; MAGNESIUM 1.8 mg/dL (1.8-2.4); PHOSPHORUS 2.8 mg/dL (2.6-4.7)
[2021-12-07] MEDS: SENNOSIDES/DOCUSATE 8.6/50MG TABLET. PO SCH (09:00)
[2021-12-07] MEDS: levETIRAcetam 500 MG TABLET PO SCH ×2 (09:20→20:31)
[2021-12-07] MEDS: ACETAMINOPHEN 500 MG TABLET PO SCH ×3 (09:21→20:31)
[2021-12-07] MEDS: CITALOPRAM 20 MG TABLET. PO SCH (09:21)
[2021-12-07] MEDS: GABAPENTIN 300 MG CAPSULE. PO SCH ×3 (09:21→20:31)
[2021-12-07] MEDS: ENOXAPARIN 40 MG/0.4 ML SYRINGE. SQ SCH (10:12)
[2021-12-07] MEDS: ASPIRIN 325 MG TABLET PO SCH ×2 (10:12→20:31)
[2021-12-07 11:00] VITALS: BP 112/61
[2021-12-07 15:00] VITALS: BP 156/71
[2021-12-07] MEDS: MORPHINE SULFATE 2 MG/ML INJ. IVP PRN (15:23)
[2021-12-07] MEDS ORDERED: BISACODYL 10 MG SUPP.RECT. PR PRN (16:00)
[2021-12-07 19:25] VITALS: BP 101/47
[2021-12-07] MEDS: NORTRIPTYLINE 25 MG CAPSULE PO SCH (20:31)
[2021-12-07 23:11] VITALS: BP 122/69
[2021-12-08] MEDS: ACETAMINOPHEN 500 MG TABLET PO SCH (03:00)
[2021-12-08 03:20] VITALS: BP 118/62
[2021-12-08] MEDS: oxyCODONE/APAP 5/325 1 TAB TABLET PO PRN (06:29)
[2021-12-08 07:00] VITALS: BP 126/67
--- NOTE | 2021-12-08 07:19 | PDOC ---
PROGRESS NOTES Date of Service DATE: 12/08/21 TIME: 07:18 Subjective Subjective POD #2 s/p L MABEL Patient was seen and examined this morning. Awake sitting upright in recliner. Very pleasant. Conversational. Reports pain to left hip is well controlled. Mobilizing with therapy postoperatively. Tolerating p.o. intake. Denies chest pain or shortness of air. No abdominal pain or discomfort. No acute events overnight. Objective Vital Signs Vital Signs Date Time Temp Pulse Resp B/P (MAP) Pulse Ox O2 Delivery O2 Flow Rate FiO2 12/08/21 06:29 18 12/08/21 03:20 98.5 80 118/62 (80) 95 Nasal Cannula 2.0 98.5 Physical Exam Orthopedic examination of the left lower extremity: Skin is warm and dry. Surgical dressing intact over the lateral aspect of the left hip. No drainage or discharge noted. Compartments are soft compressible. EHL/FHL intact. Plantarflexion/dorsiflexion intact. Cap refill brisk. Left lower extremity is warm and well-perfused. Sensation to light touch intact over all dermatomes. Calf nontender. No pain with passive stretch. Negative Homans' sign. No evidence of thrombus. Labs Laboratory Tests Test 12/06/21 08:10 12/06/21 20:23 12/07/21 07:00 12/07/21 07:35 POC SARS CoV-2 Antigen Negative (NEGATIVE) Glucose (Fingerstick) 159 mg/dL (70-99) 120 mg/dL (70-99) White Blood Count 13.3 x10^3/uL (4.0-11.0) Red Blood Count 3.34 x10^6/uL (3.50-5.40) Hemoglobin 11.1 g/dL (12.0-15.5) Hematocrit 32.6 % (36.0-47.0) Mean Corpuscular Volume 98 fL (79-100) Mean Corpuscular Hemoglobin 33 pg (25-35) Mean Corpuscular Hemoglobin Concent 34 g/dL (31-37) Red Cell Distribution Width 13.1 % (11.5-14.5) Platelet Count 230 x10^3/uL (140-400) Neutrophils (%) (Auto) 81 % (31-73) Lymphocytes (%) (Auto) 12 % (24-48) Monocytes (%) (Auto) 7 % (0-9) Eosinophils (%) (Auto) 0 % (0-3) Basophils (%) (Auto) 0 % (0-3) Neutrophils # (Auto) 10.8 x10^3/uL (1.8-7.7) Lymphocytes # (Auto) 1.5 x10^3/uL (1.0-4.8) Monocytes # (Auto) 0.9 x10^3/uL (0.0-1.1) Eosinophils # (Auto) 0.0 x10^3/uL (0.0-0.7) Basophils # (Auto) 0.0 x10^3/uL (0.0-0.2) Sodium Level 140 mmol/L (136-145) Potassium Level 4.0 mmol/L (3.5-5.1) Chloride Level 106 mmol/L (98-107) Carbon Dioxide Level 29 mmol/L (21-32) Anion Gap 5 (6-14) Blood Urea Nitrogen 9 mg/dL (7-20) Creatinine 0.9 mg/dL (0.6-1.0) Estimated GFR (Cockcroft-Gault) 63.2 Glucose Level 125 mg/dL (70-99) Calcium Level 8.4 mg/dL (8.5-10.1) Phosphorus Level 2.8 mg/dL (2.6-4.7) Magnesium Level 1.8 mg/dL (1.8-2.4) Laboratory Tests Test 12/07/21 07:35 Glucose (Fingerstick) 120 mg/dL (70-99) Assessment Assessment 61 y/o F L hip osteoarthritis s/p L MABEL 12/06 - Qian * TDWB LLE * PT/OT for mobilization, gait training and fall prevention * Anterior lateral hip precautions to include no extension past neutral, no adduction past midline, no external rotation past neutral x6 weeks. * Recommend utilizing a walker to aid with ambulation and prevent falls * DVT ppx (Lovenox); ASA 325mg BID on discharge * Post-op abx complete * Maintain surgical dressings * ICE operative hip prn * Hgb 11.1 post-op 12/07; VSS * Encourage use of IS while awake * CM for discharge planning; discharge arrangements pending; orthopedically stable for discharge * Follow up with orthopedics in 2 weeks following discharge from the hospital. Call to schedule prior to discharge [phone]. Justicifation of Admission Dx: Justifications for Admission: Justification of Admission Dx: N/A PEG CORDERO Dec 08, 2021 07:19
--- NOTE | 2021-12-08 08:00 | NUR ---
held pts scheduled 1000mg tylenol PO. pt is over 4000mg/24hr limit. Dr. Limon made aware
[2021-12-08 08:07] LABS: BASO # 0.1 x10^3/uL (0.0-0.2); BASO % 1 % (0-3); EOS # 0.2 x10^3/uL (0.0-0.7); EOS % 3 % (0-3); HEMATOCRIT 31.1 % (36.0-47.0); HEMOGLOBIN 10.6 g/dL (12.0-15.5); LYMPH # 1.6 x10^3/uL (1.0-4.8); LYMPH % 20 % (24-48); MEAN CORPUSCULAR HEMOGLOBIN 33 pg (25-35); MEAN CORPUSCULAR HGB CONC 34 g/dL (31-37); MEAN CORPUSCULAR VOLUME 98 fL (79-100); MONO # 0.9 x10^3/uL (0.0-1.1); MONO % 11 % (0-9); NEUT # 5.2 x10^3/uL (1.8-7.7); NEUT % 65 % (31-73); PLATELET COUNT 199 x10^3/uL (140-400); RED BLOOD COUNT 3.19 x10^6/uL (3.50-5.40); RED CELL DISTRIBUTION WIDTH 13.2 % (11.5-14.5)
--- NOTE | 2021-12-08 08:27 | NUR ---
PRN sennas (2tabs) were given in place of ordered senna
[2021-12-08] MEDS: GABAPENTIN 300 MG CAPSULE. PO SCH ×2 (08:38→14:26)
[2021-12-08] MEDS: LEVOTHYROXINE 112 MCG TABLET PO SCH (08:38)
[2021-12-08] MEDS: levETIRAcetam 500 MG TABLET PO SCH (08:38)
[2021-12-08] MEDS: CITALOPRAM 20 MG TABLET. PO SCH (08:38)
[2021-12-08] MEDS: ENOXAPARIN 40 MG/0.4 ML SYRINGE. SQ SCH (08:39)
[2021-12-08] MEDS: ASPIRIN 325 MG TABLET PO SCH (08:39)
[2021-12-08 08:49] LABS: CALCIUM 8.6 mg/dL (8.5-10.1); CREATININE 0.9 mg/dL (0.6-1.0); GFR 63.2; MAGNESIUM 1.9 mg/dL (1.8-2.4); POTASSIUM 3.5 mmol/L (3.5-5.1)
[2021-12-08] MEDS: SENNOSIDES/DOCUSATE 8.6/50MG TABLET. PO SCH (09:00)
[2021-12-08 11:00] VITALS: BP 113/67
[2021-12-08] MEDS ORDERED: ASPI325T8 PO (11:19)
[2021-12-08] MEDS ORDERED: OXYC1TAB15 PO (11:19)
--- NOTE | 2021-12-08 11:23 | SNU/HH DC ---
DISCHARGE WITH HOME HEALTH DISCHARGE INFORMATION: Discharge Date: Dec 08, 2021 Condition on Discharge: Stable CODE STATUS: Code Status: Full HOME HEALTH: Face to Face: I certify this patient is under my care and that I, or a nurse practitioner or joaquin patel's staff assistant working with me, had a face to face encounter that meets the physician face to face encounter requirements with this patient on []. 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 For Eval/Treatment: Yes Physical Therapy For: Evalulation/Treatment Occupational Therapy For: Evaluation/Treatment Home Health Aide For: Self-care Pt Meets Homebound Status: Poor coordination w/ amb., Unsteady balance w/ amb,, Frequent falls w/ injury, Limited distance walking, Unable to negotiate home POST DISCHARGE ORDERS: Activity Instructions for Disc: Activity as tolerated Weight Bearing Status after Di: As tolerated FOLLOW-UP: Follow up with: PCP within 2 weeks of discharge Follow Up With: Orthopedic surgery in 2 weeks for postoperative wound check CERTIFICATION STATEMENT: Certification Statement: Certification Statement: Based on the above finding, I certify that this patient is confined to the home and needs intermittent penitentiary care, physical therapy and/or speech therapy, or continues to need occupational therapy.~ This patient is under my care, and I have initiated the establishment of the plan of care.~ This patient will be followed by myself or a community physician who will periodically review the plan of care. Home Meds Active Scripts Oxycodone/Apap 5-325 (PERCOCET 5-325 MG TABLET ) 1 Each Tablet, 1 TAB PO PRN Q6HRS PRN for PAIN for 3 Days, #12 TAB Prov:BRIDGER DAUGHERTY MD 12/08/21 Aspirin (ASPIRIN) 325 Mg Tablet, 325 MG PO BID for dvt prophylaxis for 30 Days, #60 TAB Prov:BRIDGER DAUGHERTY MD 12/08/21 Ondansetron (ONDANSETRON ODT) 4 Mg Tab.rapdis, 1 TAB PO PRN Q6-8HRS PRN for NAUSEA for 5 Days, #16 TAB Prov:BARNEY PAN MD 01/16/21 Reported Medications Escitalopram Oxalate (ESCITALOPRAM OXALATE) 20 Mg Tablet, 20 MG PO DAILY for ANTI-DEPRESSANT, TAB 0 Refills 11/22/21 Levetiracetam (LEVETIRACETAM) 500 Mg Tab.er.24h, 1 TAB PO BID for SEIZURES for 30 Days, #60 TAB 0 Refills 11/22/21 Levothyroxine Sodium (LEVOTHYROXINE SODIUM) 112 Mcg Tablet, 112 MCG PO DAILYAC for THYROID SUPPLEMENT, #30 TAB 0 Refills 05/10/21 Nortriptyline Hcl (NORTRIPTYLINE HCL) 25 Mg Capsule, 25 MG PO PRN TID PRN for ANXIETY, CAP 05/10/21 Tramadol Hcl (TRAMADOL HCL) 50 Mg Tablet, 50 MG PO Q6HRS PRN for PAIN, TAB 05/10/21 Gabapentin (GABAPENTIN) 600 Mg Tablet, 600 MG PO TID for NEUROGENIC PAIN, TAB 05/10/21 Discontinued Reported Medications Naproxen (NAPROXEN) 500 Mg Tablet, 500 MG PO BID for pain relief, TAB 05/10/21 BRIDGER DAUGHERTY MD Dec 08, 2021 11:23
[2021-12-08] MEDS: MORPHINE SULFATE 2 MG/ML INJ. IVP PRN ×2 (11:50→14:27)
--- NOTE | 2021-12-10 12:40 | PDOC3 ---
[facility]-Discharge Summary Date of Admission: Date of Admission: Dec 06, 2021 Date of Discharge: Date of Discharge: Dec 08, 2021 Discharge Diagnosis: Discharge Diagnosis: Left hip pain with degenerative joint disease status post left hip MABEL 12/06/2021 Consults: Consults: Per Ortho: s/p L MABEL 12/06 - Qain * T[facility] LLE * PT/OT for mobilization, gait training and fall prevention * Anterior lateral hip precautions to include no extension past neutral, no adduction past midline, no external rotation past neutral x6 weeks. * Recommend utilizing a walker to aid with ambulation and prevent falls * DVT ppx (Lovenox); ASA 325mg BID on discharge * Post-op abx complete * Maintain surgical dressings * ICE operative hip prn * Hgb 11.1 post-op 12/07; VSS * Encourage use of IS while awake * CM for discharge planning; discharge arrangements pending; orthopedically stable for discharge * Follow up with orthopedics in 2 weeks following discharge from the hospital. Call to schedule prior to discharge [phone]. Hospital Course: Hospital Course: 61-year-old female who presents to outpatient surgery for degenerative joint disease for her left hip. Status post left total hip arthroplasty with Dr. Laughlin. Hospitalists group have been consulted for medical management. Patient seen in recliner today with no pain and tolerating diet. She will participate with physical therapy today and will determine her mobility status and recommendations from physical therapy for placement. Patient tolerated procedure well with orthopedic surgery. She will go home with home health for further rehab. She will need to continue aspirin for DVT prophylaxis. Disposition: Disposition/Orders: D/C to Home w/ HH Activity: Activity: Resume previous activity Diet: Diet: Cardiac Medications: Home Meds Active Scripts Oxycodone/Apap 5-325 (PERCOCET 5-325 MG TABLET ) 1 Each Tablet, 1 TAB PO PRN Q6HRS PRN for PAIN for 3 Days, #12 TAB Prov:BRIDGER DAUGHERTY MD 12/08/21 Aspirin (ASPIRIN) 325 Mg Tablet, 325 MG PO BID for dvt prophylaxis for 30 Days, #60 TAB Prov:BRIDGER DAUGHERTY MD 12/08/21 Ondansetron (ONDANSETRON ODT) 4 Mg Tab.rapdis, 1 TAB PO PRN Q6-8HRS PRN for NAUSEA for 5 Days, #16 TAB Prov:BARNEY PAN MD 01/16/21 Reported Medications Escitalopram Oxalate (ESCITALOPRAM OXALATE) 20 Mg Tablet, 20 MG PO DAILY for ANTI-DEPRESSANT, TAB 0 Refills 11/22/21 Levetiracetam (LEVETIRACETAM) 500 Mg Tab.er.24h, 1 TAB PO BID for SEIZURES for 30 Days, #60 TAB 0 Refills 11/22/21 Levothyroxine Sodium (LEVOTHYROXINE SODIUM) 112 Mcg Tablet, 112 MCG PO DAILYAC for THYROID SUPPLEMENT, #30 TAB 0 Refills 05/10/21 Nortriptyline Hcl (NORTRIPTYLINE HCL) 25 Mg Capsule, 25 MG PO PRN TID PRN for ANXIETY, CAP 05/10/21 Tramadol Hcl (TRAMADOL HCL) 50 Mg Tablet, 50 MG PO Q6HRS PRN for PAIN, TAB 05/10/21 Gabapentin (GABAPENTIN) 600 Mg Tablet, 600 MG PO TID for NEUROGENIC PAIN, TAB 05/10/21 Discontinued Reported Medications Naproxen (NAPROXEN) 500 Mg Tablet, 500 MG PO BID for pain relief, TAB 05/10/21 Scheduled Aspirin (Aspirin), 325 MG PO BID Escitalopram Oxalate (Escitalopram Oxalate), 20 MG PO DAILY, (Reported) Gabapentin (Gabapentin), 600 MG PO TID, (Reported) Levetiracetam (Levetiracetam), 1 TAB PO BID, (Reported) Levothyroxine Sodium (Levothyroxine Sodium), 112 MCG PO DAILYAC, (Reported) Scheduled PRN Nortriptyline Hcl (Nortriptyline Hcl), 25 MG PO PRN TID PRN for ANXIETY, (Reported) Ondansetron (Ondansetron Odt), 1 TAB PO PRN Q6-8HRS PRN for NAUSEA Oxycodone/Apap 5-325 (Percocet 5-325 Mg Tablet ), 1 TAB PO PRN Q6HRS PRN for PAIN Tramadol Hcl (Tramadol Hcl), 50 MG PO Q6HRS PRN for PAIN, (Reported) Discontinued Medications Naproxen (Naproxen), 500 MG PO BID, (Reported) Total Time: Total Time: Total time spent was 32 minutes in preparing scripts, discharge planning with SWI and RN and preparing this discharge summary Patient seen and examined on day of discharge. No acute abnormal findings. Justicifation of Admission Dx: Justifications for Admission: Justification of Admission Dx: N/A BRIDGER DAUGHERTY MD December 10, 2021 12:39
--- NOTE | 2021-12-10 12:42 | PDOC ---
[facility] PROGRESS NOTE Date of Service DOS: DATE: 12/07/21 TIME: 12:40 Chief Complaint Chief Complaint Status post left hip MABEL 12/06/2021 History of Present Illness History of Present Illness 61-year-old female who presents to outpatient surgery for degenerative joint disease for her left hip. Status post left total hip arthroplasty with Dr. Laughlin. Hospitalists group have been consulted for medical management. Patient seen in recliner today with no pain and tolerating diet. She will participate with physical therapy today and will determine her mobility status and recommendations from physical therapy for placement. Late entry 11/29/2021 No acute events overnight. Patient seen examined bedside. Pain is well controlled. Patient's chart, labs, images were reviewed and discussed with RN Physical Exam General: Alert, Oriented X3, Cooperative Heart: Regular rate Lungs: Clear Abdomen: Normal bowel sounds Extremities: No clubbing Comment Review of Relevant I have reviewed the following items mary jane (where applicable) has been applied. Justifications for Admission Other Justification Hip Fracture BRIDGER DAUGHERTY MD December 10, 2021 12:42
--- NOTE | 2021-12-11 19:12 | PATHOLOGY ---
[facility] Accession Number: [id number] . 01 Material submitted: . femur - FEMORAL HEAD LEFT . 01 Clinical history: . OSTEOARTHRITIS L HIP . 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 (JPM:[facility]; 12/11/2021) QTP 12/11/2021 1343 Local . 02 Electronically signed: . South Leiva MD, Pathologist NPI- [id number] . 01 Gross description: . The specimen is received in formalin, labeled "Susy Edward". It consists of a femoral head, which measures 5.0 cm in diameter and 5.3 cm in height. The cartilaginous surface is granular with moderate eburnation, 40 % and the opposite end shows a predominantly flat, firm received and centrally eroded resection margin. The femoral head displays extensive osteophyte formation. Sectioning reveals the cartilage to range in thickness from 0 cm to 0.3 cm. The cut surfaces show bowman-yellow to red, focally sclerotic, spongiotic bone. Medical Assistant Cardiology sections area submitted as follows, following decalcification: A1-A2: Femoral head to resection margin, 1 section bisected A3: Sectioned representing osteophyte formation (JGG; 12/07/2021) JGG/JGG 12/07/2021 230 Local . 02 Pathologist provided ICD-10: M16.12 . 02 CPT . 887136, [id number] Specimen Comment: A courtesy copy of this report has been sent to [phone] Specimen Comment: Report sent to Performed at: [address], [place] [id number] MD Jay Jay Basilio MD Phone: [phone] Performed at: [address] [id number] MD South Leiva MD Phone: [phone]
== END 2021-12-08 15:25 | disposition home or self-care (01) ==
LOC: SURG 07:06 → INTOOBSV 15:16 → 4 NORTH 15:16
PROVIDERS: ADMIT Internal Medicine; ATTEND Internal Medicine
DX: M16.12 Unilateral primary osteoarthritis, left hip (principal); Z20.822 Contact with and (suspected) exposure to COVID-19; I10 Essential (primary) hypertension; M47.816 Spondylosis without myelopathy or radiculopathy, lumbar region; Z87.891 Personal history of nicotine dependence; Z79.82 Long term (current) use of aspirin; Z79.899 Other long term (current) drug therapy; Z98.890 Other specified postprocedural states
CPT/HCPCS: 27130; 36415; 73502; 80048; 82962; 83735; 84100; 85025; 86850; 86900; 86901; 88304; 88311; 96365; 96366; 96372; 96375; 96376; 97110; 97116; 97162; 97166; 97530; 97535; A4213; A4930; A6258; A6550; C1776; G0378; G0379; J0171; J0330; J0690; J0780; J1100; J1170; J1650; J1885; J2250; J2270; J2370; J2405; J2704; J2795; J3010; J3490; 96374